=== PATIENT | female | born 1935 | race Caucasian/White ===

== ENCOUNTER 2018-07-29 15:59 | Inpatient (IN) | payer MEDICARE, BC ==
[~2018-07-29] VITALS: Ht 167.6 cm; Wt 74.8 kg
[2018-07-29] MEDS ORDERED: Z GUARD REMEDY PASTE 57 GM TUBE TOP PRN (18:30)
[2018-07-29] MEDS ORDERED: SODI100037 PO (19:15)
[2018-07-29] MEDS ORDERED: HEPA500013 IJ (19:15)
[2018-07-29] MEDS ORDERED: IPRA0.2S48 NEB (19:15)
[2018-07-29] MEDS ORDERED: ALBU1.25 NEB (19:15)
[2018-07-29] MEDS ORDERED: ACET-2154 PO (19:15)
[2018-07-29] MEDS ORDERED: DOXA2TAB2 PO (19:15)
[2018-07-29] MEDS ORDERED: SENN-18 PO (19:15)
[2018-07-29] MEDS ORDERED: METO100T14 PO (19:15)
[2018-07-29] MEDS ORDERED: HYDR-4077 PO (19:15)
[2018-07-29] MEDS ORDERED: LEVO88TA5 PO (19:15)
[2018-07-29] MEDS ORDERED: CLOP75TA33 PO (19:15)
[2018-07-29] MEDS ORDERED: ALLO100T PO (19:16)
[2018-07-29 20:00] VITALS: BP 139/65
[2018-07-29] MEDS ORDERED: HEPARIN SODIUM,PORCINE 5,000 UNITS/ML VIAL SQ ONE (22:15)
[2018-07-29] MEDS ORDERED: ALBUTEROL SULFATE 1.25 MG/3 ML NEBU NEB PRN (22:15)
[2018-07-29] MEDS ORDERED: ACETAMINOPHEN 325 MG TABLET PO PRN (22:15)
[2018-07-29] MEDS ORDERED: DOXAZOSIN 2 MG TABLET PO SCH (22:30)
[2018-07-29] MEDS: ACETAMINOPHEN ES 500 MG TABLET PO PRN (22:31)
--- NOTE | 2018-07-30 00:13 | NUR ---
Admitting 82 y/o F from [facility] with diagnosis of Acute on Chronic HF exacerbation. Arrived at 1745 via ambulance accompanied by daughter and 2 EMT's. Received pt in bed, AAO x 4 watching television. No acute distress noted. Routine admission care done. Oriented to room and unit. MRSA swab done by AM nurse and sent to lab. Dr. Ascencio aware of admission and med recon completed. Informed Dr. Vizcarra of pt admission. Pictures taken and placed in chart. Verbally responsive and able to make needs known. On 1L O2 via NC with saturation at 95%. Denies pain or discomfort at this time. All safety measures and fall precautions maintained. Call light and all personal belongings within reach. Will continue to monitor.
--- NOTE | 2018-07-30 01:56 | NUR ---
Patient verbalizing feeling of anxiety and "heart racing". Vitals WNL, HR noted to be 115. paged. Dr. Barbosa informed with new orders for Xanax 1 mg PO QHSPRN. Order noted and carried out. Safety maintained. Call light within reach. Will continue to monitor.
[2018-07-30] MEDS: ALPRAZOLAM 0.5 MG TABLET PO PRN ×2 (02:23→20:53)
[2018-07-30] MEDS: LEVOTHYROXINE SODIUM 88 MCG TABLET PO SCH (06:32)
[2018-07-30 07:26] LABS: BASOPHILS # (AUTO) 0.1 K/uL (0.0-8.0); BASOPHILS % (AUTO) 0.7 % (0.0-2.0); EOSINOPHILS # (AUTO) 0.2 K/uL (0.0-0.7); EOSINOPHILS % (AUTO) 2.8 % (0.0-7.0); HEMATOCRIT 24.1 % (31.2-41.9); HEMOGLOBIN 8.6 g/dL (10.9-14.3); LYMPHOCYTES # (AUTO) 0.8 K/uL (20.0-40.0); MEAN CORPUSCULAR HEMOGLOBIN 33.2 uug (24.7-32.8); MEAN CORPUSCULAR HGB CONC 36 g/dL (32.3-35.6); MEAN CORPUSCULAR VOLUME 92.9 fL (75.5-95.3); MONOCYTES # (AUTO) 0.5 K/uL (2.0-10.0); MONOCYTES % (AUTO) 7.1 % (0.0-11.0); NEUTROPHILS # (AUTO) 5.8 K/uL (1.8-8.9); NEUTROPHILS % (AUTO) 78.4 % (38.5-71.5); PLATELET COUNT (AUTO) 166 K/uL (179-408); WHITE BLOOD COUNT (AUTO) 7.4 K/uL (3.8-11.8)
[2018-07-30 07:42] LABS: CARBON DIOXIDE 30 mmol/L (21-32); CHLORIDE 96 mmol/L (98-107); CHOLESTEROL 156 mg/dL (<200); CREATININE 1.5 mg/dL (0.6-1.3); GLUCOSE 96 mg/dL (74-106); HDL CHOLESTEROL 63 mg/dL (40-60); MAGNESIUM 2.1 mg/dL (1.8-2.4); PHOSPHOROUS 3.5 mg/dL (2.5-4.9); POTASSIUM 4.4 mmol/L (3.5-5.1); TRIGLYCERIDES 114 MG/DL (30-150); UREA NITROGEN, BLOOD 27 mg/dL (7-18)
[2018-07-30 08:00] VITALS: BP 160/78
[2018-07-30] MEDS: ALLOPURINOL 100 MG TABLET PO SCH (08:29)
[2018-07-30] MEDS: CLOPIDOGREL 75 MG TABLET PO SCH (08:29)
[2018-07-30] MEDS: METOPROLOL TARTRATE 100 MG TABLET PO SCH ×2 (08:29→21:22)
--- NOTE | 2018-07-30 08:45 | NUR ---
Received patient, awake alert x4. Weak in appearance. HR-112. Dr. West aware, said to continue Metoprolol as ordered. Seen and examined by Not in any form of distress, patient said she felt weak. No chest pains noted. On O2 at 2LPM.
--- NOTE | 2018-07-30 09:00 | NUR ---
Patient complained of SOB, not in any form of distress. Informed RT, breathing treatment done.
[2018-07-30] MEDS: LOSARTAN POTASSIUM 50 MG TABLET PO SCH (09:37)
[2018-07-30] MEDS ORDERED: HEPARIN SODIUM,PORCINE 5,000 UNITS/ML VIAL SQ SCH (09:39)
--- NOTE | 2018-07-30 10:00 | NUR ---
Up with physical therapy. Tolerating well.
[2018-07-30] MEDS: SODIUM CHLORIDE 1,000 MG TABLET PO SCH (10:20)
--- NOTE | 2018-07-30 13:52 | NUR ---
WOUND CARE CONSULT: PT PRESENTS WITH RT FOREARM SKIN TEAR, PRESENT ON ADMISSION. PT IS AMBULATORY AND CONTINENT AT THIS TIME. PT REFUSED FULL SKIN ASSESSMENT. ALL SKIN PROTECTION AND WOUND CARE RECOMMENDATIONS DISCUSSED WITH NURSING STAFF. WILL SEE PRN. HARLEY IN AGREEMENT WITH PLAN OF CARE. Addendum: 07/30/18 at 1406 by YINA PONCE RN Amended: Links added.
[2018-07-30 16:00] VITALS: BP 132/70
[2018-07-30 20:01] VITALS: BP 150/71
[2018-07-30] MEDS: DOCUSATE SODIUM 100 MG CAPSULE PO SCH (20:51)
[2018-07-30] MEDS: DOXAZOSIN 2 MG TABLET PO SCH (20:53)
[2018-07-30] MEDS: ACETAMINOPHEN ES 500 MG TABLET PO PRN (20:53)
[2018-07-30] MEDS: SENNOSIDES 1 TABLET PO SCH (20:53)
[2018-07-31 05:24] VITALS: BP 142/69
--- NOTE | 2018-07-31 05:36 | NUR ---
aaox4 on continous O2 @2L via nasal cannula. needs attended. kept comfortable. will monitor patient. no respiratory distress noted.OOB to BSC with moderate assist. voiding well. VSS rt arm dressing intact. denies any pain nor any discomfort.
[2018-07-31] MEDS: LEVOTHYROXINE SODIUM 88 MCG TABLET PO SCH (06:35)
[2018-07-31] MEDS: METOPROLOL TARTRATE 100 MG TABLET PO SCH ×2 (09:45→20:55)
[2018-07-31] MEDS: CLOPIDOGREL 75 MG TABLET PO SCH (09:45)
[2018-07-31] MEDS: ALLOPURINOL 100 MG TABLET PO SCH (09:45)
[2018-07-31] MEDS: SODIUM CHLORIDE 1,000 MG TABLET PO SCH (09:45)
[2018-07-31] MEDS: LOSARTAN POTASSIUM 50 MG TABLET PO SCH (09:45)
[2018-07-31] MEDS: ACETAMINOPHEN ES 500 MG TABLET PO PRN ×2 (09:50→20:57)
[2018-07-31 19:37] VITALS: BP 133/60
[2018-07-31] MEDS: DOCUSATE SODIUM 100 MG CAPSULE PO SCH (20:53)
[2018-07-31] MEDS: SENNOSIDES 1 TABLET PO SCH (20:53)
[2018-07-31] MEDS: DOXAZOSIN 2 MG TABLET PO SCH (20:54)
--- NOTE | 2018-08-01 05:01 | NUR ---
quiet night. aaox4 no acute distress noted. OOB to bedside commode. voiding well. needs attended. tolerated po meds well. will monitor patient. siderails up for safety. VSS. tolerated po med well. In good spirits.
[2018-08-01 05:18] VITALS: BP 109/54
[2018-08-01] MEDS: LEVOTHYROXINE SODIUM 88 MCG TABLET PO SCH (06:32)
[2018-08-01 07:28] LABS: BASOPHILS # (AUTO) 0.1 K/uL (0.0-8.0); BASOPHILS % (AUTO) 0.7 % (0.0-2.0); EOSINOPHILS # (AUTO) 0.3 K/uL (0.0-0.7); EOSINOPHILS % (AUTO) 4.4 % (0.0-7.0); HEMATOCRIT 26.6 % (31.2-41.9); HEMOGLOBIN 9.4 g/dL (10.9-14.3); LYMPHOCYTES # (AUTO) 1.1 K/uL (20.0-40.0); LYMPHOCYTES % (AUTO) 14.6 % (20.5-51.5); MEAN CORPUSCULAR HEMOGLOBIN 33.2 uug (24.7-32.8); MEAN CORPUSCULAR HGB CONC 35 g/dL (32.3-35.6); MEAN CORPUSCULAR VOLUME 93.8 fL (75.5-95.3); MONOCYTES # (AUTO) 0.5 K/uL (2.0-10.0); MONOCYTES % (AUTO) 7.2 % (0.0-11.0); NEUTROPHILS # (AUTO) 5.3 K/uL (1.8-8.9); NEUTROPHILS % (AUTO) 73.1 % (38.5-71.5); PLATELET COUNT (AUTO) 194 K/uL (179-408); RED BLOOD CELL COUNT(AUTO) 2.83 MIL/uL (3.63-4.92); WHITE BLOOD COUNT (AUTO) 7.2 K/uL (3.8-11.8)
[2018-08-01 07:38] LABS: ALANINE AMINOTRANSFERASE 21 U/L (14-59); ALKALINE PHOSPHATASE 73 U/L (50-136); ASPARTATE AMINOTRANSFERASE 26 U/L (15-37); BILIRUBIN,TOTAL 0.3 mg/dL (0.2-1.0); CARBON DIOXIDE 31 mmol/L (21-32); CHLORIDE 94 mmol/L (98-107); CREATININE 1.8 mg/dL (0.6-1.3); GLUCOSE 94 mg/dL (74-106); MAGNESIUM 2.2 mg/dL (1.8-2.4); PHOSPHOROUS 4.4 mg/dL (2.5-4.9); POTASSIUM 4.1 mmol/L (3.5-5.1); TOTAL PROTEIN, SERUM 6.1 g/dL (6.4-8.2); UREA NITROGEN, BLOOD 32 mg/dL (7-18)
[2018-08-01] MEDS: CLOPIDOGREL 75 MG TABLET PO SCH (08:42)
[2018-08-01] MEDS: METOPROLOL TARTRATE 100 MG TABLET PO SCH ×2 (08:42→21:17)
[2018-08-01] MEDS: ALLOPURINOL 100 MG TABLET PO SCH (08:42)
[2018-08-01] MEDS: SODIUM CHLORIDE 1,000 MG TABLET PO SCH ×2 (13:09→17:53)
[2018-08-01 19:30] VITALS: BP 141/70
[2018-08-01] MEDS: SENNOSIDES 1 TABLET PO SCH (21:00)
[2018-08-01] MEDS: DOCUSATE SODIUM 100 MG CAPSULE PO SCH (21:00)
[2018-08-01] MEDS: ACETAMINOPHEN ES 500 MG TABLET PO PRN (21:14)
[2018-08-01] MEDS: DOXAZOSIN 2 MG TABLET PO SCH (21:14)
[2018-08-01] MEDS: ALPRAZOLAM 0.5 MG TABLET PO PRN (22:41)
--- NOTE | 2018-08-01 23:40 | NUR ---
INTERDISCIPLINARY TEAM CONFERENCE
[2018-08-02 04:00] VITALS: BP 133/69
[2018-08-02] MEDS: LEVOTHYROXINE SODIUM 88 MCG TABLET PO SCH (06:44)
[2018-08-02 07:14] LABS: CARBON DIOXIDE 29 mmol/L (21-32); CHLORIDE 97 mmol/L (98-107); CREATININE 1.6 mg/dL (0.6-1.3); GLUCOSE 86 mg/dL (74-106); MAGNESIUM 2.1 mg/dL (1.8-2.4); PHOSPHOROUS 4.3 mg/dL (2.5-4.9); POTASSIUM 4.6 mmol/L (3.5-5.1); UREA NITROGEN, BLOOD 33 mg/dL (7-18)
[2018-08-02 07:30] LABS: URIC ACID 5.2 mg/dL (2.6-6.0)
--- NOTE | 2018-08-02 09:00 | NUR ---
Patient noted resting in bed, no complaints of pain at this time, no signs of distress, MD Potts orders discontinuance of fluid restriction, normal saline running at 60 mL/hr, urine specimen sent to lab, call light in reach, bed locked and in lowest position, all needs met
[2018-08-02] MEDS: CLOPIDOGREL 75 MG TABLET PO SCH (09:38)
[2018-08-02] MEDS: ALLOPURINOL 100 MG TABLET PO SCH (09:38)
[2018-08-02] MEDS: METOPROLOL TARTRATE 100 MG TABLET PO SCH ×2 (09:39→20:38)
[2018-08-02] MEDS: SODIUM CHLORIDE 1,000 MG TABLET PO SCH ×3 (09:39→17:14)
[2018-08-02] MEDS: ACETAMINOPHEN ES 500 MG TABLET PO PRN ×2 (12:09→20:39)
[2018-08-02] MEDS: IV NS 1000 ML 1,000 ML IV PRN (12:10)
[2018-08-02 16:30] VITALS: BP 97/44
--- NOTE | 2018-08-02 19:45 | NUR ---
Received pt in bed, AAO x 4 reading a book. No acute distress noted. Verbally responsive and able to make needs known. Denies pain or discomfort at this time. Noted with IVF running on L hand, tolerating well. No s/s infiltration noted. All safety measures and fall precautions maintained. Call light and all personal belongings within reach. Will continue to monitor.
[2018-08-02 19:47] VITALS: BP 147/66
[2018-08-02] MEDS: DOCUSATE SODIUM 100 MG CAPSULE PO SCH (20:38)
[2018-08-02] MEDS: SENNOSIDES 1 TABLET PO SCH (20:39)
[2018-08-02] MEDS: DOXAZOSIN 2 MG TABLET PO SCH (20:39)
[2018-08-02] MEDS: ALPRAZOLAM 0.5 MG TABLET PO PRN (23:07)
[2018-08-03 05:00] VITALS: BP 135/56
[2018-08-03] MEDS: IV NS 1000 ML 1,000 ML IV PRN (06:22)
[2018-08-03] MEDS: LEVOTHYROXINE SODIUM 88 MCG TABLET PO SCH (06:31)
--- NOTE | 2018-08-03 07:43 | NUR ---
Patient noted resting in bed, no complaints of pain at this time, no signs of distress, normal saline running at 60 mL/hr, x [address], call light in reach, bed locked and in lowest position, all needs met
[2018-08-03 08:00] VITALS: BP 122/50
[2018-08-03] MEDS: ALLOPURINOL 100 MG TABLET PO SCH (08:30)
[2018-08-03] MEDS: ACETAMINOPHEN ES 500 MG TABLET PO PRN ×2 (08:30→20:47)
[2018-08-03] MEDS: CLOPIDOGREL 75 MG TABLET PO SCH (08:30)
[2018-08-03] MEDS: SODIUM CHLORIDE 1,000 MG TABLET PO SCH ×3 (08:31→16:01)
[2018-08-03] MEDS: METOPROLOL TARTRATE 100 MG TABLET PO SCH ×2 (08:31→20:46)
[2018-08-03 15:50] VITALS: BP 146/62
[2018-08-03] MEDS: SENNOSIDES 1 TABLET PO SCH (20:44)
[2018-08-03] MEDS: DOCUSATE SODIUM 100 MG CAPSULE PO SCH (20:44)
[2018-08-03] MEDS: DOXAZOSIN 2 MG TABLET PO SCH (20:45)
[2018-08-03] MEDS: ALPRAZOLAM 0.5 MG TABLET PO PRN (20:47)
[2018-08-03 21:55] VITALS: BP 177/72
[2018-08-04 04:00] VITALS: BP 136/54
[2018-08-04] MEDS: LEVOTHYROXINE SODIUM 88 MCG TABLET PO SCH (06:34)
--- NOTE | 2018-08-04 06:42 | NUR ---
slept most of the shift. aao x4 ambulates with walker. voiding well. needs attended. IVF's infusing well. denies any pain nor any discomfort. kept comfortable.fall precautions maintained.side rails up for safety.
--- NOTE | 2018-08-04 07:44 | NUR ---
Patient noted sitting up in bed, no complaints of pain at this time, no signs of distress, normal saline running at 60 mL/hr, x [address], call light in reach, bed locked and in lowest position, all needs met at this time
[2018-08-04] MEDS: METOPROLOL TARTRATE 100 MG TABLET PO SCH ×2 (09:00→20:14)
[2018-08-04] MEDS: CLOPIDOGREL 75 MG TABLET PO SCH (09:01)
[2018-08-04] MEDS: ALLOPURINOL 100 MG TABLET PO SCH (09:01)
[2018-08-04] MEDS: ACETAMINOPHEN ES 500 MG TABLET PO PRN (09:01)
[2018-08-04] MEDS: SODIUM CHLORIDE 1,000 MG TABLET PO SCH ×3 (09:01→17:45)
[2018-08-04 16:01] VITALS: BP 164/69
[2018-08-04] MEDS ORDERED: hydrALAZINE HCL 25 MG TABLET PO PRN (17:30)
[2018-08-04 20:00] VITALS: BP 122/84
[2018-08-04] MEDS: ALPRAZOLAM 0.5 MG TABLET PO PRN (20:10)
[2018-08-04] MEDS: DOXAZOSIN 2 MG TABLET PO SCH (20:11)
[2018-08-04] MEDS: DOCUSATE SODIUM 100 MG CAPSULE PO SCH (20:12)
[2018-08-04] MEDS: SENNOSIDES 1 TABLET PO SCH (20:13)
[2018-08-04 22:05] VITALS: BP 157/68
[2018-08-04] MEDS: AMLODIPINE 5 MG TABLET PO SCH (22:05)
[2018-08-05 04:00] VITALS: BP 140/64
[2018-08-05] MEDS: ACETAMINOPHEN ES 500 MG TABLET PO PRN (05:26)
--- NOTE | 2018-08-05 05:54 | NUR ---
Received pt in bed feeling anxiety. AAO x3. HR elevated. Xanax and other routine meds given as ordered. On 2L O2 via NC, tolerating well. No acute distress noted. All needs attended to promptly t/o the night. Safety measures maintained. Call light and personal belongings within reach. Will continue to monitor.
[2018-08-05] MEDS: LEVOTHYROXINE SODIUM 88 MCG TABLET PO SCH (06:32)
--- NOTE | 2018-08-05 07:20 | NUR ---
PATIENT ON BED AWAKE AAOX4. ON O2 @ 2LPM VIA NC. NO ACUTE DISTRESS NOTED BLE EDEMA NOTED. COMPLAINS OF SOB W/ ACTIVITY. COMFORT MEASURES PROVIDED. WILL CONTINUE TO MONITOR CLOSELY.
[2018-08-05 07:55] LABS: CARBON DIOXIDE 29 mmol/L (21-32); CHLORIDE 99 mmol/L (98-107); CREATININE 1.3 mg/dL (0.6-1.3); GLUCOSE 114 mg/dL (74-106); UREA NITROGEN, BLOOD 22 mg/dL (7-18)
[2018-08-05 08:30] LABS: BASOPHILS # (AUTO) 0.1 K/uL (0.0-8.0); BASOPHILS % (AUTO) 0.8 % (0.0-2.0); EOSINOPHILS # (AUTO) 0.1 K/uL (0.0-0.7); EOSINOPHILS % (AUTO) 1.4 % (0.0-7.0); HEMOGLOBIN 8.9 g/dL (10.9-14.3); LYMPHOCYTES # (AUTO) 0.8 K/uL (20.0-40.0); LYMPHOCYTES % (AUTO) 13.3 % (20.5-51.5); MEAN CORPUSCULAR HEMOGLOBIN 33.7 uug (24.7-32.8); MEAN CORPUSCULAR HGB CONC 36 g/dL (32.3-35.6); MEAN CORPUSCULAR VOLUME 95.1 fL (75.5-95.3); MONOCYTES # (AUTO) 0.4 K/uL (2.0-10.0); MONOCYTES % (AUTO) 6.7 % (0.0-11.0); NEUTROPHILS # (AUTO) 4.7 K/uL (1.8-8.9); NEUTROPHILS % (AUTO) 77.8 % (38.5-71.5); RED BLOOD CELL COUNT(AUTO) 2.63 MIL/uL (3.63-4.92); WHITE BLOOD COUNT (AUTO) 6.1 K/uL (3.8-11.8)
[2018-08-05 08:34] LABS: PLATELET COUNT (AUTO) 261 K/uL (179-408)
[2018-08-05] MEDS: SODIUM CHLORIDE 1,000 MG TABLET PO SCH ×3 (09:46→16:20)
[2018-08-05] MEDS: CLOPIDOGREL 75 MG TABLET PO SCH (09:46)
[2018-08-05] MEDS: ALLOPURINOL 100 MG TABLET PO SCH (09:46)
[2018-08-05] MEDS: METOPROLOL TARTRATE 100 MG TABLET PO SCH ×2 (10:23→21:00)
[2018-08-05] MEDS: AMLODIPINE 5 MG TABLET PO SCH ×2 (10:24→21:00)
--- NOTE | 2018-08-05 12:12 | NUR ---
PATIENT REQUESTED IF SHE CAN GET AN ORDER FOR LASIX, COMPLAINING OF SOB AND SWELLING BLE. PER PATIENT SHE TAKES LASIX 20 MG BID AT HOME. NOTIFIED DR. KENNY, WITH ORDERS FOR LASIX 60MG NOW AND RESUME LASIX 20 MG BID. ORDERS NOTED AND CARRIED OUT.
[2018-08-05] MEDS ORDERED: FUROSEMIDE 20 MG TABLET PO ONE (12:15)
[2018-08-05 16:53] VITALS: BP 153/72
[2018-08-05 20:00] VITALS: BP 167/68
[2018-08-05] MEDS: DOCUSATE SODIUM 100 MG CAPSULE PO SCH (20:59)
[2018-08-05] MEDS: SENNOSIDES 1 TABLET PO SCH (20:59)
[2018-08-05] MEDS: DOXAZOSIN 2 MG TABLET PO SCH (21:00)
--- NOTE | 2018-08-05 21:58 | NUR ---
Received pt resting in bed and watching TV. On 2L O2 via NC, tolerating well. No acute distress noted. No c/o pain or discomfort. Safety measures maintained. Call light and personal belongings within reach. Will continue to monitor.
[2018-08-05 22:30] VITALS: BP 133/61
[2018-08-05] MEDS: ALPRAZOLAM 0.5 MG TABLET PO PRN (23:20)
[2018-08-06 04:00] VITALS: BP 154/68
[2018-08-06] MEDS: LEVOTHYROXINE SODIUM 88 MCG TABLET PO SCH (06:47)
[2018-08-06 07:45] VITALS: BP 169/81
[2018-08-06] MEDS: CLOPIDOGREL 75 MG TABLET PO SCH (08:14)
[2018-08-06] MEDS: ALLOPURINOL 100 MG TABLET PO SCH (08:14)
[2018-08-06] MEDS: FLUTICASONE/VILANTEROL 1 EACH BLST.W.DEV INH SCH (08:14)
[2018-08-06] MEDS: AMLODIPINE 5 MG TABLET PO SCH ×2 (08:18→20:50)
[2018-08-06] MEDS: FUROSEMIDE 20 MG TABLET PO SCH (08:18)
[2018-08-06] MEDS: SODIUM CHLORIDE 1,000 MG TABLET PO SCH ×2 (08:19→16:28)
[2018-08-06] MEDS: METOPROLOL TARTRATE 100 MG TABLET PO SCH ×2 (08:19→20:50)
[2018-08-06] MEDS ORDERED: FUROSEMIDE 20 MG TABLET PO SCH (09:00)
--- NOTE | 2018-08-06 10:02 | NUR ---
Received pt. in bed with eyes open. A/OX3-4 and able to make her needs known. Denies SOB or CP at this time. On O2 via NC with SAT 94% and tolerating well. Noted with RT. forearms skin tear, wound tx as ordered. BLE edema non-pitting noted, currently on Lasix. No s/sx on bleeding, on plavix. All due AM medications administered as ordered and tolerated well. Safety measures in place. Call light and all frequently used items in reach. Will continue to monitor accordingly.
[2018-08-06 16:03] VITALS: BP 149/65
[2018-08-06] MEDS: ACETAMINOPHEN ES 500 MG TABLET PO PRN (18:13)
--- NOTE | 2018-08-06 18:57 | NUR ---
EOS Note: No significant change during this shift. No changes in mentation, A/OX4 able to make her needs known. Denies CP or SOB, currently on 2LPM via NC and tolerating well. D/C'd PIV on Lt. wrist 2/2 non-usage and per pt. request. TX provided on RFA as ordered, secured with kerlix, pt. tolerated tx. Elevated BLE 2/2 edema, non-pitting and resolving with Lasix. No s/sx of bleeding noted. All pt. needs attended and met. Safety measures in place. Call light and all frequently used items within pt. reach. Will endorse to oncoming shift accordingly.
--- NOTE | 2018-08-06 19:30 | NUR ---
RECEIVED PT IN BED. IN NO ACUTE SIGNS OF DISTRESS AT THIS TIME. SAFETY MEASURES RENDERED.
[2018-08-06] MEDS: DOCUSATE SODIUM 100 MG CAPSULE PO SCH (20:49)
[2018-08-06] MEDS: SENNOSIDES 1 TABLET PO SCH (20:49)
[2018-08-06] MEDS: DOXAZOSIN 2 MG TABLET PO SCH (20:51)
[2018-08-06 21:16] VITALS: BP 132/64
[2018-08-06] MEDS: ALPRAZOLAM 0.5 MG TABLET PO PRN (23:18)
[2018-08-07] MEDS: LEVOTHYROXINE SODIUM 88 MCG TABLET PO SCH (06:37)
--- NOTE | 2018-08-07 07:00 | NUR ---
NO SIGNIFICANT CHANGE DURING SHIFT
[2018-08-07 07:28] VITALS: BP 124/70
[2018-08-07 08:00] VITALS: BP 125/55
[2018-08-07] MEDS: ALLOPURINOL 100 MG TABLET PO SCH (08:37)
[2018-08-07] MEDS: CLOPIDOGREL 75 MG TABLET PO SCH (08:37)
[2018-08-07] MEDS: ACETAMINOPHEN ES 500 MG TABLET PO PRN (08:37)
[2018-08-07] MEDS: FUROSEMIDE 20 MG TABLET PO SCH (08:37)
[2018-08-07] MEDS: METOPROLOL TARTRATE 100 MG TABLET PO SCH ×2 (08:39→20:52)
[2018-08-07] MEDS: AMLODIPINE 5 MG TABLET PO SCH ×2 (08:39→20:50)
[2018-08-07] MEDS: SODIUM CHLORIDE 1,000 MG TABLET PO SCH ×2 (08:39→17:19)
[2018-08-07] MEDS: FLUTICASONE/VILANTEROL 1 EACH BLST.W.DEV INH SCH (08:40)
--- NOTE | 2018-08-07 10:46 | NUR ---
Patient noted sitting up in bed, no complaints of pain at this time, no signs of distress, call light in reach, bed locked and in lowest position, x 2 bed rails, all needs met at this time
[2018-08-07 16:00] VITALS: BP 119/51
[2018-08-07 20:00] VITALS: BP 153/78
--- NOTE | 2018-08-07 20:05 | NUR ---
Patient received in bed, AAO X3. Able to make needs known. No sign of acute distress or SOB noted. On O2 2 L/min via N/C. No complain of pain. V/S checked, brief assessment done. Safety measures maintained. Bed brake and alarm on, side rails upx2. Call light and personal belonging within reach. Continue to monitor.
[2018-08-07] MEDS: SENNOSIDES 1 TABLET PO SCH (20:48)
[2018-08-07] MEDS: DOCUSATE SODIUM 100 MG CAPSULE PO SCH (20:48)
[2018-08-07] MEDS: DOXAZOSIN 2 MG TABLET PO SCH (20:51)
[2018-08-07] MEDS: ALPRAZOLAM 0.5 MG TABLET PO PRN (23:03)
[2018-08-08 04:00] VITALS: BP 132/58
--- NOTE | 2018-08-08 05:58 | NUR ---
End of the shift note Patient was stable throughout the shift. No sign of acute distress or SOB noted. On O2 2 L/min via N/C. No complain of pain. Medication given as ordered. Safety measures maintained. Bed brake and alarm on, side rails upx2. Call light and personal belonging within reach. Continue to monitor and will endorse to the day shift nurse.
[2018-08-08] MEDS: LEVOTHYROXINE SODIUM 88 MCG TABLET PO SCH (06:30)
[2018-08-08 08:00] VITALS: BP 139/69
[2018-08-08] MEDS: CLOPIDOGREL 75 MG TABLET PO SCH (08:11)
[2018-08-08] MEDS: ALLOPURINOL 100 MG TABLET PO SCH (08:11)
[2018-08-08] MEDS: SODIUM CHLORIDE 1,000 MG TABLET PO SCH ×2 (08:12→16:55)
[2018-08-08] MEDS: FLUTICASONE/VILANTEROL 1 EACH BLST.W.DEV INH SCH (08:12)
[2018-08-08] MEDS: FUROSEMIDE 20 MG TABLET PO SCH (08:12)
[2018-08-08] MEDS: AMLODIPINE 5 MG TABLET PO SCH ×2 (08:13→20:18)
[2018-08-08] MEDS: METOPROLOL TARTRATE 100 MG TABLET PO SCH ×2 (08:14→20:17)
[2018-08-08] MEDS: MAG HYDROX/AL HYDROX/SIMETH 30 ML LIQUID UDC PO PRN ×3 (09:04→21:05)
--- NOTE | 2018-08-08 09:42 | NUR ---
Received pt. in bed with eyes open. A/OX4 and able to make her needs known. Denies SOB or CP at this time. On O2 via NC with SAT 93% and tolerating well. Pt. c/o dyspepsia, pt. refused PRN tums, notified Dr. Vizcarra promptly and received order for Mylanta, orders noted and carried out .Noted with RT. forearms skin tear, wound tx provided and tolerated well. BLE edema non-pitting subsiding, currently on Lasix. No s/sx on bleeding, on plavix. All due AM medications administered as ordered and PRN Mylanta, pt. tolerated well. Safety measures in place. Call light and all frequently used items in reach. Will continue to monitor accordingly.
[2018-08-08] MEDS: CALCIUM CARBONATE 500 MG TAB.CHEW PO PRN (13:38)
--- NOTE | 2018-08-08 13:40 | NUR ---
INTERDISCIPLINARY TEAM CONFERENCE
[2018-08-08 16:40] VITALS: BP 143/65
--- NOTE | 2018-08-08 18:52 | NUR ---
EOS Note: No significant change during this shift. Pt. A/OX4 able to make her needs known. Denies CP or SOB, currently on 2LPM via NC and tolerating well. Pt. dyspepsia well managed with Tums and Mylanta. Encouraged pt. use of IS for deep breathing exercise, pt. teaching provided for use of IS, returned demo by pt. Wound care provided on RFA as ordered, secured with kerlix, pt. tolerated tx. All due medications administered as ordered. Elevated BLE 2/2 edema, non-pitting with improvement. No s/sx of bleeding noted. All pt. needs attended and met. Safety measures in place. Call light and all frequently used items within pt. reach. Will endorse to oncoming shift accordingly.
[2018-08-08 19:30] VITALS: BP 138/65
[2018-08-08] MEDS: SENNOSIDES 1 TABLET PO SCH (20:17)
[2018-08-08] MEDS: DOCUSATE SODIUM 100 MG CAPSULE PO SCH (20:17)
[2018-08-08] MEDS: DOXAZOSIN 2 MG TABLET PO SCH (20:20)
--- NOTE | 2018-08-08 20:20 | NUR ---
Patient received in bed, AAO X4. Able to make needs known. No sign of acute distress or SOB noted. On O2 1.5 L/min via N/C. No complain of pain. V/S checked, brief assessment done. Safety measures maintained. Bed brake and alarm on, side rails upx2. Call light and personal belonging within reach. Continue to monitor.
[2018-08-08] MEDS: ALPRAZOLAM 0.5 MG TABLET PO PRN (23:06)
[2018-08-09 04:00] VITALS: BP 131/64
--- NOTE | 2018-08-09 05:25 | NUR ---
End of the shift note Patient was stable throughout the shift. No sign of acute distress or SOB noted. On O2 2 L/min via N/C. No complain of pain. Medication given as ordered. Safety measures maintained. All needs attended promptly. Bed brake and alarm on, side rails upx2. Call light and personal belonging within reach. Continue to monitor and will endorse to the day shift nurse.
[2018-08-09] MEDS: LEVOTHYROXINE SODIUM 88 MCG TABLET PO SCH (06:33)
[2018-08-09] MEDS: FUROSEMIDE 20 MG TABLET PO SCH (09:57)
[2018-08-09] MEDS: CLOPIDOGREL 75 MG TABLET PO SCH (09:57)
[2018-08-09] MEDS: ALLOPURINOL 100 MG TABLET PO SCH (09:57)
[2018-08-09] MEDS: AMLODIPINE 5 MG TABLET PO SCH ×2 (09:57→20:38)
[2018-08-09] MEDS: METOPROLOL TARTRATE 100 MG TABLET PO SCH ×2 (09:58→20:39)
[2018-08-09] MEDS: SODIUM CHLORIDE 1,000 MG TABLET PO SCH ×2 (09:58→16:19)
[2018-08-09] MEDS: FLUTICASONE/VILANTEROL 1 EACH BLST.W.DEV INH SCH (09:58)
[2018-08-09] MEDS: MAG HYDROX/AL HYDROX/SIMETH 30 ML LIQUID UDC PO PRN ×3 (13:03→20:39)
[2018-08-09 15:35] VITALS: BP 160/65
--- NOTE | 2018-08-09 20:15 | NUR ---
Patient received at bed. AAO X3. No sign of acute distress or SOB noted. On room air. Safety measures maintained, Fall precaution maintained, bed in low position, side rails up x2, bed brake on, call light and personal belonging within reach. Continue to monitor.
[2018-08-09] MEDS: SENNOSIDES 1 TABLET PO SCH (20:37)
[2018-08-09] MEDS: DOCUSATE SODIUM 100 MG CAPSULE PO SCH (20:39)
[2018-08-09] MEDS: DOXAZOSIN 2 MG TABLET PO SCH (20:41)
[2018-08-09 20:55] VITALS: BP 163/72
[2018-08-09] MEDS: ALPRAZOLAM 0.5 MG TABLET PO PRN (23:00)
--- NOTE | 2018-08-10 05:42 | NUR ---
End of the shift note Patient was stable throughout the shift. No sign of acute distress or SOB noted. On O2 1.5 L/min via N/C. No complain of pain. Medication given as ordered. Safety measures maintained. All needs attended promptly. Bed brake and alarm on, side rails upx2. Call light and personal belonging within reach. Continue to monitor and will endorse to the day shift nurse.
[2018-08-10] MEDS: LEVOTHYROXINE SODIUM 88 MCG TABLET PO SCH (06:36)
[2018-08-10 06:44] VITALS: BP 117/54
[2018-08-10 08:00] VITALS: BP 137/61
[2018-08-10] MEDS: ACETAMINOPHEN ES 500 MG TABLET PO PRN (08:18)
[2018-08-10] MEDS: CLOPIDOGREL 75 MG TABLET PO SCH (08:18)
[2018-08-10] MEDS: AMLODIPINE 5 MG TABLET PO SCH ×2 (08:18→20:33)
[2018-08-10] MEDS: ALLOPURINOL 100 MG TABLET PO SCH (08:18)
[2018-08-10] MEDS: FUROSEMIDE 20 MG TABLET PO SCH (08:18)
[2018-08-10] MEDS: METOPROLOL TARTRATE 100 MG TABLET PO SCH ×2 (08:19→20:27)
[2018-08-10] MEDS: SODIUM CHLORIDE 1,000 MG TABLET PO SCH ×2 (08:19→16:50)
[2018-08-10] MEDS: FLUTICASONE/VILANTEROL 1 EACH BLST.W.DEV INH SCH (08:19)
--- NOTE | 2018-08-10 09:17 | NUR ---
Patient noted sitting up in wheelchair, PRN Tylenol given on request, no signs of distress noted, on 2 Liters of oxygen, call light in reach, all needs met at this time.
[2018-08-10] MEDS: MAG HYDROX/AL HYDROX/SIMETH 30 ML LIQUID UDC PO PRN ×3 (09:47→22:27)
[2018-08-10] MEDS: CALCIUM CARBONATE 500 MG TAB.CHEW PO PRN (16:07)
[2018-08-10 16:23] VITALS: BP 148/65
--- NOTE | 2018-08-10 17:57 | NUR ---
PRN Maalox and Tums given this shift for stomach upset, no distress noted this shift, continues on 2 Liters of oxygen
[2018-08-10 19:10] VITALS: BP 143/66
--- NOTE | 2018-08-10 19:20 | NUR ---
Received patient lying in bed. AAOX 4. In no acute distress. VS WNL. On o2 at 2LPM via NC in place. O2 sat at 96%. Stated mild upset stomach but tolerable at this time. Will continue to monitor. Needs assessed and attended to. Safety measure initiated and call bernard within reach.
[2018-08-10] MEDS: DOCUSATE SODIUM 100 MG CAPSULE PO SCH (20:26)
[2018-08-10] MEDS: DOXAZOSIN 2 MG TABLET PO SCH (20:26)
[2018-08-10] MEDS: SENNOSIDES 1 TABLET PO SCH (20:26)
[2018-08-11] MEDS: ALPRAZOLAM 0.5 MG TABLET PO PRN ×2 (00:07→22:52)
[2018-08-11 02:30] VITALS: BP 145/64
--- NOTE | 2018-08-11 06:20 | NUR ---
AAOX4. In no acute distress. VS WNL. O2 at 2LPM via NC in place. O2 sat at 96%. Needs assessed and attended to. Safety measure maintained and call bernard within reach.
[2018-08-11] MEDS: LEVOTHYROXINE SODIUM 88 MCG TABLET PO SCH (06:35)
--- NOTE | 2018-08-11 07:44 | NUR ---
Patient noted sitting up in bed, no complaints of pain at this time, no signs of distress, call light in reach, bed locked and in lowest position, all needs known at this time
[2018-08-11] MEDS: FLUTICASONE/VILANTEROL 1 EACH BLST.W.DEV INH SCH (08:31)
[2018-08-11] MEDS: FUROSEMIDE 20 MG TABLET PO SCH (08:31)
[2018-08-11] MEDS: CLOPIDOGREL 75 MG TABLET PO SCH (08:31)
[2018-08-11] MEDS: ACETAMINOPHEN ES 500 MG TABLET PO PRN (08:31)
[2018-08-11] MEDS: ALLOPURINOL 100 MG TABLET PO SCH (08:31)
[2018-08-11] MEDS: SODIUM CHLORIDE 1,000 MG TABLET PO SCH ×2 (08:32→17:33)
[2018-08-11] MEDS: METOPROLOL TARTRATE 100 MG TABLET PO SCH ×2 (08:33→21:27)
[2018-08-11] MEDS: MAG HYDROX/AL HYDROX/SIMETH 30 ML LIQUID UDC PO PRN ×3 (08:34→22:52)
[2018-08-11] MEDS: AMLODIPINE 5 MG TABLET PO SCH ×2 (08:34→21:27)
[2018-08-11 16:05] VITALS: BP 139/64
[2018-08-11] MEDS: DOCUSATE SODIUM 100 MG CAPSULE PO SCH (21:26)
[2018-08-11] MEDS: SENNOSIDES 1 TABLET PO SCH (21:27)
[2018-08-11] MEDS: DOXAZOSIN 2 MG TABLET PO SCH (21:28)
[2018-08-12 05:44] VITALS: BP 136/66
[2018-08-12] MEDS: CALCIUM CARBONATE 500 MG TAB.CHEW PO PRN (05:47)
[2018-08-12] MEDS: LEVOTHYROXINE SODIUM 88 MCG TABLET PO SCH (06:33)
[2018-08-12] MEDS: MAG HYDROX/AL HYDROX/SIMETH 30 ML LIQUID UDC PO PRN ×2 (06:41→13:05)
--- NOTE | 2018-08-12 08:30 | NUR ---
Patient sitting up on the chair, eating breakfast, alert, not in any form of distress. No complain of any discomfort. Patient informed of planned discharge and she is agreeable. On oxygen at 1LPM/nasal cannula. Assisted with her needs. Call light placed within reach.
[2018-08-12] MEDS: FLUTICASONE/VILANTEROL 1 EACH BLST.W.DEV INH SCH (09:50)
[2018-08-12] MEDS: CLOPIDOGREL 75 MG TABLET PO SCH (09:51)
[2018-08-12] MEDS: FUROSEMIDE 20 MG TABLET PO SCH (09:51)
[2018-08-12] MEDS: AMLODIPINE 5 MG TABLET PO SCH (09:52)
[2018-08-12] MEDS: METOPROLOL TARTRATE 100 MG TABLET PO SCH (09:52)
[2018-08-12] MEDS: SODIUM CHLORIDE 1,000 MG TABLET PO SCH ×2 (09:54→17:25)
[2018-08-12] MEDS: ALLOPURINOL 100 MG TABLET PO SCH (10:00)
--- NOTE | 2018-08-12 13:47 | NUR ---
Received an order from Dr. Vizcarra for discharge to home with home health.
[2018-08-12 16:02] VITALS: BP 145/62
--- NOTE | 2018-08-12 17:00 | NUR ---
Discharge instructions provided to patient and son with verbalized understanding. All belongings well accounted for and brought home by son. Offered flu vaccine and pneumonia vaccines and per patient she prefers to get it with her primary MD.
--- NOTE | 2018-08-12 19:31 | NUR ---
Patient picked up by [facility] at this time. Patient remains alert, verbally responsive, not in any form of acute distress. She denies any pain or discomfort at this time.
== END 2018-08-12 19:30 | disposition home health service (06) | DRG 280 ==
PROVIDERS: ADMIT Physical Medicine & Rehabilitation Pain Medicine; ATTEND Physical Medicine & Rehabilitation Pain Medicine
DX: I13.0 Hypertensive heart and chronic kidney disease with heart failure and stage 1 through stage 4 chronic kidney disease, or unspecified chronic kidney disease (principal); I50.33 Acute on chronic diastolic (congestive) heart failure; I21.A1 Myocardial infarction type 2; D68.59 Other primary thrombophilia; E87.1 Hypo-osmolality and hyponatremia; M19.90 Unspecified osteoarthritis, unspecified site; E03.9 Hypothyroidism, unspecified; I25.10 Atherosclerotic heart disease of native coronary artery without angina pectoris; D50.9 Iron deficiency anemia, unspecified; D63.8 Anemia in other chronic diseases classified elsewhere; F41.9 Anxiety disorder, unspecified; F32.9 Major depressive disorder, single episode, unspecified; I27.20 Pulmonary hypertension, unspecified; I34.0 Nonrheumatic mitral (valve) insufficiency; I42.2 Other hypertrophic cardiomyopathy; I70.0 Atherosclerosis of aorta; N18.2 Chronic kidney disease, stage 2 (mild); N20.0 Calculus of kidney; J43.9 Emphysema, unspecified; M81.0 Age-related osteoporosis without current pathological fracture; Z87.440 Personal history of urinary (tract) infections; Z95.0 Presence of cardiac pacemaker; Z86.73 Personal history of transient ischemic attack (TIA), and cerebral infarction without residual deficits; R19.5 Other fecal abnormalities; Z88.5 Allergy status to narcotic agent; Z88.8 Allergy status to other drugs, medicaments and biological substances; Z91.040 Latex allergy status
CPT/HCPCS: 36415; 71045; 82533; 83735; 84100; 84300; 84550; 85025; 92523; 92526; 92610; 94640; 97110; 97112; 97116; 97165; 97530; 97535; A4663; A9150; J1644; J7030; J8499

== ENCOUNTER 2021-03-30 21:21 | Inpatient (IN) | payer MEDICARE, BC ==
[~2021-03-30] VITALS: Ht 165.1 cm; Wt 60.8 kg
--- NOTE | 2021-03-30 20:55 | NUR ---
Patient arrived in the unit via [facility], acccompanied by 2 EMT's. Awake, alert and oiriented x 4.pleasant and cheerful. Oriented to her room and call light use. with return demonstration. Routine admission care done. Plan of care initiated.
[~2021-03-30 21:21] MED LIST: ACET-2154 PO; ALBU1.25 NEB; ALLO100T PO; CLOP75TA33 PO; DOXA2TAB2 PO; HEPA500013 IJ; HYDR-4077 PO; IPRA0.2S48 NEB; LEVO88TA5 PO; METO100T14 PO; SENN-18 PO; SODI100010 PO
[2021-03-30] MEDS ORDERED: Z GUARD REMEDY PASTE 57 GM TUBE TOP PRN (21:45)
[2021-03-30] MEDS ORDERED: DILT240C88 PO (22:20)
[2021-03-30] MEDS ORDERED: ONDA4SYR IJ (22:20)
[2021-03-30] MEDS ORDERED: MAGN400O6 PO (22:20)
[2021-03-30] MEDS ORDERED: ACET-2154 PO (22:20)
[2021-03-30] MEDS ORDERED: MAGN30OR PO (22:20)
[2021-03-30] MEDS ORDERED: ATOR10TA PO (22:20)
[2021-03-30] MEDS ORDERED: PANT40TA49 PO (22:20)
[2021-03-30] MEDS ORDERED: IPRA0.2S48 NEB (22:20)
[2021-03-30] MEDS ORDERED: ASPI81TA31 PO (22:20)
[2021-03-30] MEDS ORDERED: CEFT1FRO2 IV (22:20)
[2021-03-30] MEDS ORDERED: [UNRECOGNIZED DRUG - CODE] PO (22:20)
[2021-03-30] MEDS ORDERED: LACT-246 PO (22:20)
[2021-03-30] MEDS ORDERED: ALPR0.255 PO (22:20)
[2021-03-30] MEDS ORDERED: METH40VI37 IVP (22:20)
[2021-03-30] MEDS ORDERED: DOCU100C36 PO (22:20)
[2021-03-30] MEDS ORDERED: CETI-90 PO (22:20)
[2021-03-31] MEDS ORDERED: MAGNESIUM HYDROXIDE 30 ML LIQUID UDC PO PRN
[2021-03-31] MEDS ORDERED: ALPRAZOLAM 0.25 MG TABLET PO SCH
[2021-03-31] MEDS ORDERED: ACETAMINOPHEN 325 MG TABLET PO SCH
[2021-03-31] MEDS ORDERED: IPRATROPIUM BROMIDE 0.5 MG/2.5 ML NEBU NEB SCH ×2 (01:30→07:35)
[2021-03-31] MEDS: ALBUTEROL SULFATE 1.25 MG/3 ML NEBU NEB SCH ×4 (01:34→19:58)
[2021-03-31 04:40] VITALS: BP 140/72
[2021-03-31] MEDS ORDERED: MAG HYDROX/AL HYDROX/SIMETH 30 ML LIQUID UDC PO PRN (05:30)
--- NOTE | 2021-03-31 06:02 | NUR ---
Shift End Report: VS stable, Slept good. No complaint presented all night. All needs attended and met. No significant event reported all night. Continue current rehab plan of care.
[2021-03-31] MEDS ORDERED: LEVOTHYROXINE SODIUM 88 MCG TABLET PO SCH (07:30)
[2021-03-31] MEDS ORDERED: PANTOPRAZOLE SODIUM 40 MG TABLET.DR PO SCH (07:30)
[2021-03-31 08:00] VITALS: BP 121/76
[2021-03-31] MEDS: hydrALAZINE HCL 50 MG TABLET PO SCH ×3 (08:03→21:56)
[2021-03-31] MEDS: ASPIRIN 81 MG TAB.CHEW PO SCH (08:11)
[2021-03-31] MEDS: SODIUM CHLORIDE 1,000 MG TABLET PO SCH (08:11)
[2021-03-31] MEDS: CEphaleXIN 500 MG CAPSULE PO SCH ×2 (08:11→20:36)
[2021-03-31] MEDS: ALLOPURINOL 100 MG TABLET PO SCH (08:11)
[2021-03-31] MEDS: CLOPIDOGREL 75 MG TABLET PO SCH (08:12)
[2021-03-31] MEDS: ENSURE ENLIVE (VAN) 240 ML LIQUID PO SCH (08:13)
[2021-03-31] MEDS: METOPROLOL TARTRATE 50 MG TABLET PO SCH ×2 (09:00→16:57)
[2021-03-31] MEDS ORDERED: hydrALAZINE HCL 50 MG TABLET PO SCH (09:00)
[2021-03-31] MEDS ORDERED: CETIRIZINE HCL 10 MG TABLET PO SCH (09:00)
[2021-03-31] MEDS ORDERED: Medication Not On Formulary EA (Lactose-Reduced Food (Ensure Enlive) 237 ML) PO SCH (09:00)
[2021-03-31] MEDS: DILTIAZEM HCL CD 240 MG CAP.SR.24H PO SCH (09:00)
[2021-03-31] MEDS: DOCUSATE SODIUM 100 MG CAPSULE PO SCH ×2 (10:13→16:54)
[2021-03-31] MEDS: ACETAMINOPHEN 325 MG TABLET PO PRN (10:18)
[2021-03-31] MEDS: IPRATROPIUM BROMIDE 0.5 MG/2.5 ML NEBU NEB SCH ×2 (14:09→19:58)
[2021-03-31 14:22] VITALS: BP 100/67
[2021-03-31] MEDS ORDERED: FURO-152 PO (16:56)
[2021-03-31] MEDS: FUROSEMIDE 20 MG TABLET PO SCH (17:13)
--- NOTE | 2021-03-31 18:55 | NUR ---
Patient AOx3. On room air. no signs of acute distress. Compliant with medications and care. Needs met. Participated with Physical and Occupational Therapy. Bed locked and in low position for safety. Call light within reach. Will endorse to incoming shift.
[2021-03-31] MEDS: DOXAZOSIN 2 MG TABLET PO SCH (20:36)
[2021-03-31] MEDS: SENNOSIDES 1 TABLET PO SCH (20:36)
[2021-03-31] MEDS: ATORVASTATIN 10 MG TABLET PO SCH (20:36)
[2021-03-31 20:41] VITALS: BP 109/53
--- NOTE | 2021-03-31 22:41 | NUR ---
Received pt resting in bed. Visitor was at bedside. AAO x4. No acute distress noted. Pt has COPD, 92% on room air. Due meds given as ordered. Held hydralazine due to decreased BP. Safety measures maintained. Call light and personal items within reach. Will continue to monitor.
[2021-04-01] MEDS: ALBUTEROL SULFATE 1.25 MG/3 ML NEBU NEB SCH ×4 (00:30→19:59)
[2021-04-01] MEDS: IPRATROPIUM BROMIDE 0.5 MG/2.5 ML NEBU NEB SCH ×4 (00:30→19:59)
[2021-04-01 05:10] VITALS: BP 141/76
[2021-04-01] MEDS: hydrALAZINE HCL 50 MG TABLET PO SCH ×3 (05:44→21:16)
[2021-04-01] MEDS: LEVOTHYROXINE SODIUM 88 MCG TABLET PO SCH (06:04)
[2021-04-01] MEDS: PANTOPRAZOLE SODIUM 40 MG TABLET.DR PO SCH (06:04)
--- NOTE | 2021-04-01 06:24 | NUR ---
Pt refused ABG at this time. RN notified.
[2021-04-01 07:18] LABS: BASOPHILS % (AUTO) 0.4 % (0.0-2.0); EOSINOPHILS # (AUTO) 0.2 K/uL (0.0-0.7); EOSINOPHILS % (AUTO) 2.6 % (0.0-7.0); HEMATOCRIT 36.1 % (31.2-41.9); HEMOGLOBIN 12.4 g/dL (10.9-14.3); LYMPHOCYTES # (AUTO) 1.1 K/uL (20.0-40.0); LYMPHOCYTES % (AUTO) 11.4 % (20.5-51.5); MEAN CORPUSCULAR HEMOGLOBIN 31.5 uug (24.7-32.8); MEAN CORPUSCULAR HGB CONC 34 g/dL (32.3-35.6); MEAN CORPUSCULAR VOLUME 92.1 fL (75.5-95.3); MONOCYTES # (AUTO) 0.8 K/uL (2.0-10.0); MONOCYTES % (AUTO) 8.8 % (0.0-11.0); NEUTROPHILS # (AUTO) 7.4 K/uL (1.8-8.9); NEUTROPHILS % (AUTO) 76.8 % (38.5-71.5); PLATELET COUNT (AUTO) 209 K/uL (179-408); RED BLOOD CELL COUNT(AUTO) 3.92 MIL/uL (3.63-4.92); WHITE BLOOD COUNT (AUTO) 9.6 K/uL (3.8-11.8)
[2021-04-01 07:29] LABS: ALANINE AMINOTRANSFERASE 14 U/L (14-59); ALKALINE PHOSPHATASE 53 U/L (50-136); ASPARTATE AMINOTRANSFERASE 18 U/L (15-37); BILIRUBIN,TOTAL 0.3 mg/dL (0.2-1.0); CARBON DIOXIDE 33 mmol/L (21-32); CHLORIDE 97 mmol/L (98-107); CREATINE KINASE, TOTAL 23 U/L (26-192); CREATININE 1.5 mg/dL (0.6-1.3); GLUCOSE 114 mg/dL (74-106); MAGNESIUM 2.3 mg/dL (1.8-2.4); PHOSPHOROUS 3.1 mg/dL (2.5-4.9); TOTAL PROTEIN, SERUM 5.9 g/dL (6.4-8.2); UREA NITROGEN, BLOOD 32 mg/dL (7-18)
[2021-04-01 08:00] VITALS: BP 114/58
[2021-04-01] MEDS: ENSURE ENLIVE (VAN) 240 ML LIQUID PO SCH (08:00)
[2021-04-01] MEDS: SODIUM CHLORIDE 1,000 MG TABLET PO SCH (08:53)
[2021-04-01] MEDS: ASPIRIN 81 MG TAB.CHEW PO SCH (08:53)
[2021-04-01] MEDS: DOCUSATE SODIUM 100 MG CAPSULE PO SCH ×2 (08:53→17:10)
[2021-04-01] MEDS: CEphaleXIN 500 MG CAPSULE PO SCH ×2 (08:53→20:14)
[2021-04-01] MEDS: DILTIAZEM HCL CD 240 MG CAP.SR.24H PO SCH (08:54)
[2021-04-01] MEDS: METOPROLOL TARTRATE 50 MG TABLET PO SCH ×2 (08:55→17:10)
[2021-04-01] MEDS: CETIRIZINE HCL 10 MG TABLET PO SCH (08:56)
[2021-04-01] MEDS: ALLOPURINOL 100 MG TABLET PO SCH (08:56)
[2021-04-01] MEDS: CLOPIDOGREL 75 MG TABLET PO SCH (08:56)
[2021-04-01] MEDS: FUROSEMIDE 20 MG TABLET PO SCH (09:00)
[2021-04-01] MEDS: MAGNESIUM HYDROXIDE 30 ML LIQUID UDC PO PRN (09:14)
--- NOTE | 2021-04-01 09:22 | NUR ---
Received patient alert and oriented x 4, pleasant and cooperative upon assessment. All due meds give per MD order. Notified Tennille López LINUX PROGRAMMER regarding Potassium result. Patient is taking Furosemide 20mg PO Daily. Awaiting for any order. Patient is aware. Call light placed within reach all needs met promptly. Will continue to monitor.
[2021-04-01] MEDS ORDERED: POTASSIUM CHLORIDE 20 MEQ TAB.PRT.SR PO SCH ×2 (09:45→12:00)
--- NOTE | 2021-04-01 10:02 | NUR ---
Hold furosemide 20mg for Potassium result of 3. Waiting for Tennille López response.
[2021-04-01 16:39] VITALS: BP 111/63
--- NOTE | 2021-04-01 17:00 | NUR ---
Patient is complaining of constipation Notified Dr. Vizcarra and order for Dulcolax suppository one time.
[2021-04-01] MEDS ORDERED: BISACODYL 10 MG SUPP.RECT RC ONE (17:15)
[2021-04-01 18:09] LABS: *BILIRUBIN,URIN NEGATIVE (NEGATIVE); *BLOOD, URINE NEGATIVE (NEGATIVE); *CLARITY,URINE CLEAR (CLEAR); *COLOR,URINE YELLOW (YELLOW); *KETONES,URINE NEGATIVE (NEGATIVE); *UROBILINOGEN,URINE 0.2 E.U./dl (NORMAL); LEUKOCYTE ESTERASE ,URINE 1+ (NEGATIVE); NITRITE, URINE NEGATIVE (NEGATIVE); PH,URINE 8.5 (5.0-8.0); UGLUCOSE NEGATIVE (NEGATIVE)
[2021-04-01 18:17] LABS: *CREATININE,URINE 100.1 mg/dL (30-125); *URINE TOTAL PROTEIN RANDOM 21.5 mg/dL (<150/24HR)
[2021-04-01] MEDS: SENNOSIDES 1 TABLET PO SCH (20:14)
[2021-04-01] MEDS: ATORVASTATIN 10 MG TABLET PO SCH (20:14)
[2021-04-01] MEDS: DOXAZOSIN 2 MG TABLET PO SCH (20:15)
[2021-04-01 20:27] VITALS: BP 123/60
--- NOTE | 2021-04-01 20:49 | NUR ---
Received pt resting in bed. AAO x4. No acute distress noted. Denies pain/ discomfort. Due meds given as ordered. Safety measures maintained. Call light and personal items within reach. Will continue to monitor.
[2021-04-01 21:15] VITALS: BP 107/57
[2021-04-01 22:52] LABS: RBC,URINE NONE SEEN /HPF (0-3)
[2021-04-01 22:53] LABS: BACTERIA,URINE FEW /HPF (NONE SEEN); SQUAMOUS EPITHELIAL CELL,UR MODERATE /HPF (NONE SEEN)
[2021-04-01] MEDS: ALPRAZOLAM 0.25 MG TABLET PO PRN (23:36)
[2021-04-02] MEDS: ALBUTEROL SULFATE 1.25 MG/3 ML NEBU NEB SCH ×4 (01:27→20:18)
[2021-04-02] MEDS: IPRATROPIUM BROMIDE 0.5 MG/2.5 ML NEBU NEB SCH ×4 (01:27→20:18)
[2021-04-02 04:52] VITALS: BP 135/66
[2021-04-02] MEDS: hydrALAZINE HCL 50 MG TABLET PO SCH ×3 (06:18→20:48)
[2021-04-02] MEDS: LEVOTHYROXINE SODIUM 88 MCG TABLET PO SCH (06:18)
[2021-04-02] MEDS: PANTOPRAZOLE SODIUM 40 MG TABLET.DR PO SCH (06:18)
[2021-04-02 08:00] VITALS: BP 108/57
[2021-04-02] MEDS ORDERED: FLEET ENEMA 133 ML BOTTLE RC ONE (08:45)
[2021-04-02] MEDS: ASPIRIN 81 MG TAB.CHEW PO SCH (08:49)
[2021-04-02] MEDS: SODIUM CHLORIDE 1,000 MG TABLET PO SCH (08:50)
[2021-04-02] MEDS: CEphaleXIN 500 MG CAPSULE PO SCH ×2 (08:51→20:50)
[2021-04-02] MEDS: FUROSEMIDE 20 MG TABLET PO SCH (08:51)
[2021-04-02] MEDS: ASPIRIN/ACETAMINOPHEN/CAFFEINE TABLET PO PRN (08:51)
[2021-04-02] MEDS: CLOPIDOGREL 75 MG TABLET PO SCH (08:51)
[2021-04-02] MEDS: CETIRIZINE HCL 10 MG TABLET PO SCH (08:51)
[2021-04-02] MEDS: ALLOPURINOL 100 MG TABLET PO SCH (08:51)
[2021-04-02] MEDS: DOCUSATE SODIUM 100 MG CAPSULE PO SCH ×2 (09:00→16:59)
[2021-04-02] MEDS: METOPROLOL TARTRATE 50 MG TABLET PO SCH ×2 (09:00→17:00)
[2021-04-02] MEDS: DILTIAZEM HCL CD 240 MG CAP.SR.24H PO SCH (09:00)
[2021-04-02 09:11] LABS: BASOPHILS # (AUTO) 0.1 K/uL (0.0-8.0); BASOPHILS % (AUTO) 0.4 % (0.0-2.0); EOSINOPHILS # (AUTO) 0.6 K/uL (0.0-0.7); EOSINOPHILS % (AUTO) 4.1 % (0.0-7.0); HEMATOCRIT 38.3 % (31.2-41.9); HEMOGLOBIN 12.8 g/dL (10.9-14.3); LYMPHOCYTES # (AUTO) 1.2 K/uL (20.0-40.0); LYMPHOCYTES % (AUTO) 7.5 % (20.5-51.5); MEAN CORPUSCULAR HGB CONC 34 g/dL (32.3-35.6); MEAN CORPUSCULAR VOLUME 92.8 fL (75.5-95.3); MONOCYTES # (AUTO) 0.8 K/uL (2.0-10.0); MONOCYTES % (AUTO) 5.2 % (0.0-11.0); NEUTROPHILS # (AUTO) 12.8 K/uL (1.8-8.9); NEUTROPHILS % (AUTO) 82.8 % (38.5-71.5); PLATELET COUNT (AUTO) 248 K/uL (179-408); RED BLOOD CELL COUNT(AUTO) 4.13 MIL/uL (3.63-4.92); WHITE BLOOD COUNT (AUTO) 15.5 K/uL (3.8-11.8)
[2021-04-02 09:13] LABS: CARBON DIOXIDE 29 mmol/L (21-32); CHLORIDE 98 mmol/L (98-107); CREATININE 1.5 mg/dL (0.6-1.3); GLUCOSE 173 mg/dL (74-106); POTASSIUM 3.9 mmol/L (3.5-5.1); UREA NITROGEN, BLOOD 29 mg/dL (7-18)
[2021-04-02] MEDS: ENSURE ENLIVE (VAN) 240 ML LIQUID PO SCH (09:16)
--- NOTE | 2021-04-02 10:00 | NUR ---
Received patient in bed, alert and oriented x 4, on room air saturating at 95%, no s/s of distress. Pleasant and cooperative upon assessment. Patient complained of constipation. Notified Tennille López [employer] TRUCK DRIVER and order for fleet enema 1x and CBC and BMP for lab. Fleet enema administered and patient tolerated well. Patient had a bowel movement medium in size. Patient went off the bed for therapy but stayed on her bedroom with PT. All needs attended promptly. Will continue to monitor.
--- NOTE | 2021-04-02 14:55 | NUR ---
Blood pressure is 97/51 pulse is 105. Patient is relaxed and no s/s of distress noted. Notified Tennille López HORSE RACE STARTER and order for Hydralazine every 12 hours. Patient made aware.
[2021-04-02 16:14] VITALS: BP 112/62
--- NOTE | 2021-04-02 16:14 | NUR ---
INDIVIDUALIZED PLAN OF CARE
[2021-04-02 20:24] VITALS: BP 99/58
[2021-04-02] MEDS: DOXAZOSIN 2 MG TABLET PO SCH (20:50)
[2021-04-02] MEDS: SENNOSIDES 1 TABLET PO SCH (20:50)
[2021-04-02] MEDS: ATORVASTATIN 10 MG TABLET PO SCH (20:50)
[2021-04-02] MEDS: MAGNESIUM HYDROXIDE 30 ML LIQUID UDC PO PRN (22:04)
[2021-04-02] MEDS: ACETAMINOPHEN 325 MG TABLET PO PRN (23:55)
[2021-04-02] MEDS: ALPRAZOLAM 0.25 MG TABLET PO PRN (23:55)
[2021-04-03] MEDS: IPRATROPIUM BROMIDE 0.5 MG/2.5 ML NEBU NEB SCH ×4 (00:58→19:09)
[2021-04-03] MEDS: ALBUTEROL SULFATE 1.25 MG/3 ML NEBU NEB SCH ×4 (00:58→19:09)
[2021-04-03 04:24] VITALS: BP 132/74
[2021-04-03] MEDS: PANTOPRAZOLE SODIUM 40 MG TABLET.DR PO SCH (06:12)
[2021-04-03] MEDS: LEVOTHYROXINE SODIUM 88 MCG TABLET PO SCH (06:12)
--- NOTE | 2021-04-03 06:42 | NUR ---
Shift End Report: VS stable. Slept in between care. Medicated once for pain with relief. No further complaint presented. All needs attended and met. Continue current rehab plan of care.
[2021-04-03 08:00] VITALS: BP 124/61
[2021-04-03] MEDS: ENSURE ENLIVE (VAN) 240 ML LIQUID PO SCH (08:54)
[2021-04-03] MEDS: DOCUSATE SODIUM 100 MG CAPSULE PO SCH ×3 (09:23→17:15)
[2021-04-03] MEDS: ASPIRIN 81 MG TAB.CHEW PO SCH (09:23)
[2021-04-03] MEDS: CLOPIDOGREL 75 MG TABLET PO SCH (09:23)
[2021-04-03] MEDS: hydrALAZINE HCL 50 MG TABLET PO SCH ×2 (09:23→21:00)
[2021-04-03] MEDS: FUROSEMIDE 20 MG TABLET PO SCH (09:24)
[2021-04-03] MEDS: CETIRIZINE HCL 10 MG TABLET PO SCH (09:24)
[2021-04-03] MEDS: ACETAMINOPHEN 325 MG TABLET PO PRN ×3 (09:24→19:17)
[2021-04-03] MEDS: SODIUM CHLORIDE 1,000 MG TABLET PO SCH (09:24)
[2021-04-03] MEDS: ALLOPURINOL 100 MG TABLET PO SCH (09:24)
[2021-04-03] MEDS: METOPROLOL TARTRATE 50 MG TABLET PO SCH ×2 (09:26→17:15)
[2021-04-03] MEDS: DILTIAZEM HCL CD 240 MG CAP.SR.24H PO SCH (09:26)
[2021-04-03] MEDS: ALPRAZOLAM 0.25 MG TABLET PO PRN (12:03)
[2021-04-03 14:06] LABS: A/G RATIO 1.1 (0.7-1.7); ALBUMIN 2.9 g/dL (2.9-4.4); ALPHA-1-GLOBULIN 0.3 g/dL (0.0-0.4); ALPHA-2-GLOBULIN 0.9 g/dL (0.4-1.0); BETA GLOBULIN 0.9 g/dL (0.7-1.3); GAMMA GLOBULIN 0.6 g/dL (0.4-1.8); GLOBULIN, TOTAL 2.6 g/dL (2.2-3.9); M-SPIKE Not Observed g/dL (Not Observed)
[2021-04-03 15:55] VITALS: BP 137/58
--- NOTE | 2021-04-03 19:21 | NUR ---
Pt OOB in chair for dinner, assisted safely back to bed, no SOB, no acute distress. Due medications given per order, no a/r noted. Pt participated with Rehab Therapy today, tolerated well. Pt able to ambulate safely to bathroom with FWW, 1 BM in toilet noted. Yoly care provided. Pt's son Arcenio at bedside this afternoon, nursing care discussed with pt and son. Pt reported 9/10 generalized pain, per pt Tylenol not effective. Dr. Vizcarra notified, advised Percocet for pain, pt declined, would like to follow up with Dr. Vizcarra tomorrow and requested PRN Tylenol. Dr. Vizcarra notified. Will endorse to plumber's helper nurse for continuity of care.
[2021-04-03 20:00] VITALS: BP 94/48
[2021-04-03] MEDS: SENNOSIDES 1 TABLET PO SCH (21:00)
[2021-04-03] MEDS: DOXAZOSIN 2 MG TABLET PO SCH (21:00)
[2021-04-03] MEDS: ATORVASTATIN 10 MG TABLET PO SCH (22:37)
[2021-04-04] MEDS: ALPRAZOLAM 0.25 MG TABLET PO PRN ×2 (00:29→08:14)
[2021-04-04] MEDS: IPRATROPIUM BROMIDE 0.5 MG/2.5 ML NEBU NEB SCH ×4 (01:03→18:22)
[2021-04-04] MEDS: ALBUTEROL SULFATE 1.25 MG/3 ML NEBU NEB SCH ×4 (01:03→18:22)
[2021-04-04 04:00] VITALS: BP 120/62
[2021-04-04 06:26] LABS: BASOPHILS % (AUTO) 0.4 % (0.0-2.0); EOSINOPHILS # (AUTO) 0.7 K/uL (0.0-0.7); EOSINOPHILS % (AUTO) 5.8 % (0.0-7.0); HEMATOCRIT 30.1 % (31.2-41.9); LYMPHOCYTES # (AUTO) 0.9 K/uL (20.0-40.0); LYMPHOCYTES % (AUTO) 7.4 % (20.5-51.5); MEAN CORPUSCULAR HEMOGLOBIN 31.2 uug (24.7-32.8); MEAN CORPUSCULAR HGB CONC 33 g/dL (32.3-35.6); MEAN CORPUSCULAR VOLUME 93.9 fL (75.5-95.3); MONOCYTES # (AUTO) 0.8 K/uL (2.0-10.0); MONOCYTES % (AUTO) 6.8 % (0.0-11.0); NEUTROPHILS # (AUTO) 9.3 K/uL (1.8-8.9); NEUTROPHILS % (AUTO) 79.6 % (38.5-71.5); PLATELET COUNT (AUTO) 157 K/uL (179-408); WHITE BLOOD COUNT (AUTO) 11.6 K/uL (3.8-11.8)
[2021-04-04 06:36] LABS: CARBON DIOXIDE 33 mmol/L (21-32); CHLORIDE 98 mmol/L (98-107); CREATININE 1.8 mg/dL (0.6-1.3); GLUCOSE 98 mg/dL (74-106); MAGNESIUM 2.8 mg/dL (1.8-2.4); PHOSPHOROUS 4.5 mg/dL (2.5-4.9); POTASSIUM 4.4 mmol/L (3.5-5.1); UREA NITROGEN, BLOOD 30 mg/dL (7-18)
[2021-04-04] MEDS: PANTOPRAZOLE SODIUM 40 MG TABLET.DR PO SCH (06:46)
[2021-04-04] MEDS: LEVOTHYROXINE SODIUM 88 MCG TABLET PO SCH (06:46)
--- NOTE | 2021-04-04 06:49 | NUR ---
Patient alert oriented x 4 saturation decreased to 86% last night before RT administered breathing treatment she robby was placed on 2 Lpm oxygen via n/c no signs of respiratory distress or pain. Patients last Bowel movement was this morning 04/04/21. Bed in low position and call light within reach. Will endorse to next shift nurse pt is due for xray today.
[2021-04-04 07:58] VITALS: BP 98/51
[2021-04-04] MEDS: ASPIRIN 81 MG TAB.CHEW PO SCH (08:14)
[2021-04-04] MEDS: DOCUSATE SODIUM 100 MG CAPSULE PO SCH ×2 (08:20→17:00)
[2021-04-04] MEDS: FUROSEMIDE 20 MG TABLET PO SCH (08:20)
[2021-04-04] MEDS: SODIUM CHLORIDE 1,000 MG TABLET PO SCH (08:20)
[2021-04-04] MEDS: ALLOPURINOL 100 MG TABLET PO SCH (08:20)
[2021-04-04] MEDS: CETIRIZINE HCL 10 MG TABLET PO SCH (08:20)
[2021-04-04] MEDS: CLOPIDOGREL 75 MG TABLET PO SCH (08:20)
[2021-04-04] MEDS: DILTIAZEM HCL CD 240 MG CAP.SR.24H PO SCH (08:20)
[2021-04-04] MEDS: METOPROLOL TARTRATE 50 MG TABLET PO SCH ×2 (08:21→17:00)
[2021-04-04] MEDS: hydrALAZINE HCL 50 MG TABLET PO SCH ×2 (08:22→20:38)
[2021-04-04] MEDS: ENSURE ENLIVE (VAN) 240 ML LIQUID PO SCH (08:22)
--- NOTE | 2021-04-04 15:37 | NUR ---
Pt is resting in bed at this time with no signs of distress, kept on O2 2LPM, currently saturating at 91% on 2LPM. This morning Dr Eid came to assess patient, RN was at bedside. Pt was saturating at 97 to 100% on 2LPM while breathing tx is ongoing. .Per Dr Eid, keep O2 sat between 88 -92%. Removed o2 at around 09 AM, patient was saturating good at 94% until about 1PM, RN rechecked, and it was down to 87% on RA. Tried 1LPM of O2 via NC, it went up to 89%. Titrated to 2LPM and achieve 90-92% O2 Sat. Not in acute distress. 1x Xanax was given in the morning and it has help patient relax and feel less pain. Will continue to monitor.
[2021-04-04 16:09] VITALS: BP 103/49
[2021-04-04] MEDS: ASPIRIN/ACETAMINOPHEN/CAFFEINE TABLET PO PRN (19:58)
[2021-04-04 20:28] VITALS: BP 100/53
[2021-04-04] MEDS: SENNOSIDES 1 TABLET PO SCH (20:36)
[2021-04-04] MEDS: ATORVASTATIN 10 MG TABLET PO SCH (20:36)
[2021-04-04] MEDS: DOXAZOSIN 2 MG TABLET PO SCH (20:37)
[2021-04-05] MEDS: ALBUTEROL SULFATE 1.25 MG/3 ML NEBU NEB SCH ×4 (02:00→19:45)
[2021-04-05] MEDS: IPRATROPIUM BROMIDE 0.5 MG/2.5 ML NEBU NEB SCH ×4 (02:00→19:45)
--- NOTE | 2021-04-05 02:00 | NUR ---
Pt asleep. No s/s of respiratory distress noted. HHN tx not given. water filterer notified.
[2021-04-05 04:40] VITALS: BP 141/61
--- NOTE | 2021-04-05 05:56 | NUR ---
Shift End Report: Slept good. Medicated once for complaint of headache and both knees. No further complaint presented. All needs attended and met. No significant event reported. VS stable. No s/s of hypo/hyperglycemia. Continue current rehab plan of care.
[2021-04-05] MEDS: PANTOPRAZOLE SODIUM 40 MG TABLET.DR PO SCH (06:27)
[2021-04-05] MEDS: LEVOTHYROXINE SODIUM 88 MCG TABLET PO SCH (06:28)
[2021-04-05 07:32] VITALS: BP 126/60
[2021-04-05] MEDS: ALLOPURINOL 100 MG TABLET PO SCH (08:13)
[2021-04-05] MEDS: ASPIRIN 81 MG TAB.CHEW PO SCH (08:13)
[2021-04-05] MEDS: CETIRIZINE HCL 10 MG TABLET PO SCH (08:14)
[2021-04-05] MEDS: DOCUSATE SODIUM 100 MG CAPSULE PO SCH ×2 (08:14→16:37)
[2021-04-05] MEDS: SODIUM CHLORIDE 1,000 MG TABLET PO SCH (08:14)
[2021-04-05] MEDS: DILTIAZEM HCL CD 240 MG CAP.SR.24H PO SCH (08:23)
[2021-04-05] MEDS: METOPROLOL TARTRATE 50 MG TABLET PO SCH ×2 (08:23→16:37)
[2021-04-05] MEDS: CLOPIDOGREL 75 MG TABLET PO SCH (08:23)
[2021-04-05] MEDS: FUROSEMIDE 20 MG TABLET PO SCH (08:23)
[2021-04-05] MEDS: hydrALAZINE HCL 50 MG TABLET PO SCH ×2 (08:24→20:33)
[2021-04-05] MEDS: ENSURE ENLIVE (VAN) 240 ML LIQUID PO SCH (08:24)
[2021-04-05] MEDS: ACETAMINOPHEN 325 MG TABLET PO PRN (09:17)
--- NOTE | 2021-04-05 14:16 | NUR ---
INTERDISCIPLINARY TEAM CONFERENCE
[2021-04-05 16:00] VITALS: BP 94/44
[2021-04-05 20:18] VITALS: BP 115/48
[2021-04-05] MEDS: SENNOSIDES 1 TABLET PO SCH (20:31)
[2021-04-05] MEDS: ATORVASTATIN 10 MG TABLET PO SCH (20:32)
[2021-04-05] MEDS: DOXAZOSIN 2 MG TABLET PO SCH (20:32)
[2021-04-06] MEDS: ACETAMINOPHEN 325 MG TABLET PO PRN ×2 (01:06→14:52)
[2021-04-06] MEDS: IPRATROPIUM BROMIDE 0.5 MG/2.5 ML NEBU NEB SCH ×3 (01:48→13:38)
[2021-04-06] MEDS: ALBUTEROL SULFATE 1.25 MG/3 ML NEBU NEB SCH ×3 (01:48→13:38)
[2021-04-06] MEDS: ALPRAZOLAM 0.25 MG TABLET PO PRN ×2 (03:09→14:52)
[2021-04-06 04:18] VITALS: BP 124/55
--- NOTE | 2021-04-06 05:51 | NUR ---
Patient awake alert and able to make needs known,c/o headache medicated once with good result.Incontinent to bladder.Voided well.VSS.No acute distress noted through out the shift.
[2021-04-06] MEDS: LEVOTHYROXINE SODIUM 88 MCG TABLET PO SCH (06:08)
[2021-04-06] MEDS: PANTOPRAZOLE SODIUM 40 MG TABLET.DR PO SCH (06:09)
[2021-04-06 07:49] VITALS: BP 133/60
[2021-04-06] MEDS: METOPROLOL TARTRATE 50 MG TABLET PO SCH (08:26)
[2021-04-06] MEDS: ENSURE ENLIVE (VAN) 240 ML LIQUID PO SCH (08:26)
[2021-04-06] MEDS: CLOPIDOGREL 75 MG TABLET PO SCH (08:27)
[2021-04-06] MEDS: DOCUSATE SODIUM 100 MG CAPSULE PO SCH (08:27)
[2021-04-06] MEDS: ASPIRIN 81 MG TAB.CHEW PO SCH (08:27)
[2021-04-06] MEDS: CETIRIZINE HCL 10 MG TABLET PO SCH (08:27)
[2021-04-06] MEDS: SODIUM CHLORIDE 1,000 MG TABLET PO SCH (08:27)
[2021-04-06] MEDS: ALLOPURINOL 100 MG TABLET PO SCH (08:27)
[2021-04-06] MEDS: FUROSEMIDE 20 MG TABLET PO SCH (08:27)
[2021-04-06] MEDS: DILTIAZEM HCL CD 240 MG CAP.SR.24H PO SCH (08:27)
[2021-04-06 08:28] VITALS: BP 133/60
[2021-04-06] MEDS: hydrALAZINE HCL 50 MG TABLET PO SCH (08:28)
--- NOTE | 2021-04-06 15:01 | NUR ---
patient is alert, oriented x4, no sob, resp even nonlabored,skin warm and dry to touch, patient is discharging home today, belongigs are accounted and signed, no skin issues, patient stated she has oxygen at home, teaching provided on oxygen use at home, patient verbalized understanding of it, teaching provided about each medication and patient verbalized understanding of it, stable condition, able to ambulate with FWW with assist.
--- NOTE | 2021-04-06 15:23 | NUR ---
patient picked up by [facility] ambulance, patient is alert, oriented x4, continue on o2 0.5 liter via nasal canula, belongings sent with patient, prescription sent with patient. ID removed, no IV access on patient.
== END 2021-04-06 15:30 | disposition home health service (06) | DRG 189 ==
PROVIDERS: ADMIT Family Medicine; ATTEND Physical Medicine & Rehabilitation Pain Medicine
DX: J96.21 Acute and chronic respiratory failure with hypoxia (principal); I50.33 Acute on chronic diastolic (congestive) heart failure; N17.0 Acute kidney failure with tubular necrosis; I13.0 Hypertensive heart and chronic kidney disease with heart failure and stage 1 through stage 4 chronic kidney disease, or unspecified chronic kidney disease; N39.0 Urinary tract infection, site not specified; I42.2 Other hypertrophic cardiomyopathy; J44.1 Chronic obstructive pulmonary disease with (acute) exacerbation; E87.1 Hypo-osmolality and hyponatremia; E87.2 Acidosis; J96.22 Acute and chronic respiratory failure with hypercapnia; D64.9 Anemia, unspecified; E03.9 Hypothyroidism, unspecified; E11.22 Type 2 diabetes mellitus with diabetic chronic kidney disease; E78.5 Hyperlipidemia, unspecified; F03.90 Unspecified dementia, unspecified severity, without behavioral disturbance, psychotic disturbance, mood disturbance, and anxiety; F32.9 Major depressive disorder, single episode, unspecified; R26.89 Other abnormalities of gait and mobility; F41.9 Anxiety disorder, unspecified; N18.30 Chronic kidney disease, stage 3 unspecified; R53.1 Weakness; I25.10 Atherosclerotic heart disease of native coronary artery without angina pectoris; I34.0 Nonrheumatic mitral (valve) insufficiency; I27.20 Pulmonary hypertension, unspecified; I48.91 Unspecified atrial fibrillation; M19.90 Unspecified osteoarthritis, unspecified site; Z66 Do not resuscitate; Z85.41 Personal history of malignant neoplasm of cervix uteri; Z87.891 Personal history of nicotine dependence; Z90.710 Acquired absence of both cervix and uterus; Z95.0 Presence of cardiac pacemaker; G89.29 Other chronic pain; M54.5 Low back pain; Z88.5 Allergy status to narcotic agent; Z88.8 Allergy status to other drugs, medicaments and biological substances; Z91.040 Latex allergy status; Z91.011 Allergy to milk products
CPT/HCPCS: 36415; 71045; 83735; 83970; 84100; 84155; 84156; 84165; 84300; 85025; 87086; 94640; 94664; A9150; J3590; J8499

== ENCOUNTER 2021-07-01 20:48 | Inpatient (IN) | payer MEDICARE, BC ==
[~2021-07-01] VITALS: Ht 162.6 cm; Wt 66.7 kg
--- NOTE | 2021-07-01 20:35 | NUR ---
Patient arrived in the unit via ambulance accompanied by EMT's. Awake, alert in the [place], no s/s of respiratory distress with continuos oxygen via NC. Gently transferred from [place] to bed with 2 people assist. Skin assessment performed during turning and repositioning. F/c intact and patent, draining QS amount of clear yellow urine. Routine admission care done. Plan of care initiated.
[~2021-07-01 20:48] MED LIST changes: +ALPR0.255 PO; +ASPI81TA31 PO; +ATOR10TA PO; +CETI-90 PO; +DILT240C88 PO; +DOCU100C36 PO; +FURO-152 PO; -HEPA500013 IJ; +LACT-246 PO; +MAGN30OR PO; +MAGN400O6 PO; -METO100T14 PO; +PANT40TA49 PO; +[UNRECOGNIZED DRUG - CODE] PO
[2021-07-01 21:15] VITALS: BP 153/75
[2021-07-01] MEDS ORDERED: CEFE1FRO IV (21:40)
[2021-07-01] MEDS ORDERED: CYCL5TAB PO (21:40)
[2021-07-01] MEDS ORDERED: IPRA0.2S48 NEB (21:40)
[2021-07-01] MEDS ORDERED: ENOX40DI SQ (21:40)
[2021-07-01] MEDS ORDERED: ALBU2.5V13 NEB (21:40)
[2021-07-01] MEDS ORDERED: ACET-637 PO (21:40)
[2021-07-01] MEDS ORDERED: CETI-90 PO (21:40)
[2021-07-01] MEDS ORDERED: ONDA-104 IVP (21:40)
[2021-07-01] MEDS ORDERED: METO100T14 PO (21:40)
[2021-07-01] MEDS ORDERED: HYDR-4075 IVP (21:40)
[2021-07-01] MEDS ORDERED: ACETAMINOPHEN ES 500 MG TABLET PO PRN (22:15)
[2021-07-01] MEDS ORDERED: ASPIRIN/ACETAMINOPHEN/CAFFEINE TABLET PO PRN (22:15)
[2021-07-01] MEDS ORDERED: MAGNESIUM HYDROXIDE 30 ML LIQUID UDC PO PRN (22:15)
[2021-07-01] MEDS ORDERED: SENNOSIDES 1 TABLET PO PRN (22:15)
[2021-07-01] MEDS ORDERED: CETIRIZINE HCL 10 MG TABLET PO PRN (22:15)
[2021-07-01] MEDS: IPRATROPIUM BROMIDE 0.5 MG/2.5 ML NEBU NEB SCH (22:51)
[2021-07-01] MEDS: ALBUTEROL SULFATE 2.5 MG/ 0.5 ML NEBU NEB SCH (22:52)
[2021-07-01] MEDS ORDERED: MAG HYDROX/AL HYDROX/SIMETH 30 ML LIQUID UDC PO PRN (23:00)
[2021-07-01] MEDS ORDERED: ALBUTEROL SULFATE 1.25 MG/3 ML NEBU NEB SCH (23:15)
[2021-07-02] MEDS ORDERED: ALBUTEROL SULFATE 1.25 MG/3 ML NEBU NEB SCH (01:30)
[2021-07-02] MEDS ORDERED: IPRATROPIUM BROMIDE 0.5 MG/2.5 ML NEBU NEB SCH (01:30)
[2021-07-02] MEDS: ALBUTEROL SULFATE 2.5 MG/ 0.5 ML NEBU NEB SCH ×6 (02:30→22:56)
[2021-07-02] MEDS: IPRATROPIUM BROMIDE 0.5 MG/2.5 ML NEBU NEB SCH ×6 (02:30→22:56)
[2021-07-02 04:42] VITALS: BP 143/59
[2021-07-02] MEDS ORDERED: CEFEPIME HCL 1 G in IV DEXTROSE 5% 50 ML IV SCH ×2 (06:00→09:00)
[2021-07-02] MEDS: CYCLOBENZAPRINE HCL 10 MG TABLET PO SCH ×3 (06:03→21:22)
--- NOTE | 2021-07-02 06:26 | NUR ---
Shift End Report: Slept fairly throughout the night. Seen mostly watching TV. Medicated once for complaint of headache with relief, otherwise no further complaint presented. No significant event reported. Continue care as planned.
[2021-07-02 07:26] LABS: HEMATOCRIT 26.2 % (31.2-41.9); MEAN CORPUSCULAR HEMOGLOBIN 32.3 uug (24.7-32.8); MEAN CORPUSCULAR VOLUME 92.3 fL (75.5-95.3); PLATELET COUNT (AUTO) 142 K/uL (179-408)
[2021-07-02] MEDS ORDERED: LEVOTHYROXINE SODIUM 88 MCG TABLET PO SCH (07:30)
[2021-07-02] MEDS ORDERED: PANTOPRAZOLE SODIUM 40 MG TABLET.DR PO SCH (07:30)
[2021-07-02 07:53] LABS: CARBON DIOXIDE 36 mmol/L (21-32); CHLORIDE 99 mmol/L (98-107); CREATININE 1.4 mg/dL (0.6-1.3); GLUCOSE 79 mg/dL (74-106); PHOSPHOROUS 3.7 mg/dL (2.5-4.9); POTASSIUM 4.3 mmol/L (3.5-5.1); UREA NITROGEN, BLOOD 24 mg/dL (7-18)
[2021-07-02 08:00] VITALS: BP 143/60
[2021-07-02] MEDS ORDERED: ENSURE ENLIVE (VAN) 240 ML LIQUID PO SCH (08:00)
--- NOTE | 2021-07-02 08:00 | NUR ---
Received patient in bed, alert and oriented x 3-4, cooperative upon assessment, patient in oxygen at 2 LPM via nasal cannula, saturating at 96%. Patient wean off oxygen at 1LPM and continuously monitoring for an hour. Patient is saturating at 94-95% and denies any shortness of breath. All due meds given per MD order. BERTA PICC line intact. Call light placed within reach.
[2021-07-02] MEDS: METOPROLOL TARTRATE 50 MG TABLET PO SCH ×2 (08:29→20:55)
[2021-07-02] MEDS: DOCUSATE SODIUM 100 MG CAPSULE PO SCH ×2 (08:30→16:18)
[2021-07-02] MEDS: CLOPIDOGREL 75 MG TABLET PO SCH (08:30)
[2021-07-02] MEDS: ALLOPURINOL 100 MG TABLET PO SCH (08:37)
[2021-07-02] MEDS ORDERED: CETIRIZINE HCL 10 MG TABLET PO SCH (09:00)
[2021-07-02] MEDS ORDERED: SODIUM CHLORIDE 1,000 MG TABLET PO SCH (09:00)
[2021-07-02] MEDS ORDERED: DILTIAZEM HCL CD 240 MG CAP.SR.24H PO SCH (09:00)
[2021-07-02] MEDS ORDERED: ASPIRIN 81 MG TAB.CHEW PO SCH (09:00)
[2021-07-02] MEDS ORDERED: CEFEPIME HCL 1 G in IV DEXTROSE 5% 50 ML IV ONE (09:00)
[2021-07-02] MEDS ORDERED: hydrALAZINE HCL 50 MG TABLET PO SCH (09:00)
[2021-07-02] MEDS ORDERED: FUROSEMIDE 20 MG TABLET PO SCH (09:00)
[2021-07-02] MEDS: ACETAMINOPHEN ES 500 MG TABLET PO PRN ×2 (09:08→23:27)
--- NOTE | 2021-07-02 14:30 | NUR ---
Seen by Dr. Rascon and ordered to remove her hunt catheter . Patient on monitoring for any urinary retention. Patient on oxygen via nasal cannula at 1LPM saturating at 95% and no sob noted.
[2021-07-02 15:36] VITALS: BP 114/64
--- NOTE | 2021-07-02 19:02 | NUR ---
Patient has void and changed her adult diaper. Bladder is not distended. Will endorsed accordingly.
[2021-07-02 20:30] VITALS: BP 119/56
[2021-07-02] MEDS: ENOXAPARIN SODIUM 30 MG/0.3 ML DISP.SYRIN SQ SCH (20:56)
[2021-07-02] MEDS ORDERED: ATORVASTATIN 10 MG TABLET PO SCH (21:00)
[2021-07-02] MEDS ORDERED: DOXAZOSIN 2 MG TABLET PO SCH (21:00)
[2021-07-03] MEDS: IPRATROPIUM BROMIDE 0.5 MG/2.5 ML NEBU NEB SCH ×6 (03:31→23:18)
[2021-07-03] MEDS: ALBUTEROL SULFATE 2.5 MG/ 0.5 ML NEBU NEB SCH ×6 (03:31→23:18)
[2021-07-03] MEDS: ACETAMINOPHEN ES 500 MG TABLET PO PRN ×2 (04:38→13:35)
[2021-07-03] MEDS: Z GUARD REMEDY PASTE 57 GM TUBE TOP PRN (04:39)
--- NOTE | 2021-07-03 04:40 | NUR ---
Complaint of burning/itchiness on vaginal area. Good zayda care rendered. Cyrtec and tylenol given. Will monitor.
[2021-07-03] MEDS: hydrALAZINE HCL 20 MG/1 ML VIAL IV PRN ×2 (04:47→08:26)
--- NOTE | 2021-07-03 04:51 | NUR ---
BP 202/98, 88 HR, c/o Primo YEN made aware with new order of Hydralazine 10 mg IV every 4 hours as needed SBP>160; DPB >110., noted and given. Will monitor after an hour.
[2021-07-03 05:45] VITALS: BP 199/93
[2021-07-03] MEDS: levoFLOXacin 750 MG TABLET PO SCH (06:16)
[2021-07-03] MEDS: CYCLOBENZAPRINE HCL 10 MG TABLET PO SCH ×3 (06:16→22:20)
[2021-07-03 06:37] VITALS: BP 192/87
--- NOTE | 2021-07-03 06:43 | NUR ---
BP re checked 192/87, HR 96. Will endorse to oncoming nurse accordingly.
[2021-07-03 08:00] VITALS: BP 189/89
[2021-07-03] MEDS: DOCUSATE SODIUM 100 MG CAPSULE PO SCH ×2 (08:24→16:52)
[2021-07-03] MEDS: METOPROLOL TARTRATE 50 MG TABLET PO SCH ×2 (08:25→20:16)
[2021-07-03] MEDS: ALLOPURINOL 100 MG TABLET PO SCH (08:26)
[2021-07-03] MEDS: CLOPIDOGREL 75 MG TABLET PO SCH (08:26)
--- NOTE | 2021-07-03 14:20 | NUR ---
Patient c/o burning upon urination and "feeling hot". Temp 100.2, Tylenol administered. Seen by Dr. Wyatt. UA ordered. All needs met. Will continue to monitor.
[2021-07-03 15:00] VITALS: BP 152/72
--- NOTE | 2021-07-03 18:26 | NUR ---
Reassessed temperature at 98.6. Straight catheterized pt to obtain urine specimen. Pt tolerated well. No signs or symptoms of acute distress noted. Will continue to monitor and endorse to restaurant shift leader nurse.
[2021-07-03 18:36] LABS: *BILIRUBIN,URIN NEGATIVE (NEGATIVE); *CLARITY,URINE CLEAR (CLEAR); *COLOR,URINE YELLOW (YELLOW); *KETONES,URINE NEGATIVE (NEGATIVE); *UROBILINOGEN,URINE 0.2 E.U./dl (NORMAL); LEUKOCYTE ESTERASE ,URINE TRACE (NEGATIVE); NITRITE, URINE NEGATIVE (NEGATIVE); PH,URINE 8.5 (5.0-8.0); UGLUCOSE NEGATIVE (NEGATIVE)
[2021-07-03 18:40] LABS: *BLOOD, URINE TRACE (NEGATIVE)
[2021-07-03 18:43] LABS: BACTERIA,URINE NONE SEEN /HPF (NONE SEEN); SQUAMOUS EPITHELIAL CELL,UR FEW /HPF (NONE SEEN); URINE AMORPHOUS PHOSPHATES FEW /HPF
[2021-07-03] MEDS: ENOXAPARIN SODIUM 30 MG/0.3 ML DISP.SYRIN SQ SCH (20:18)
[2021-07-03] MEDS: ALPRAZOLAM 0.25 MG TABLET PO PRN (20:19)
[2021-07-03 20:38] VITALS: BP 149/67
[2021-07-04] MEDS: ALBUTEROL SULFATE 2.5 MG/ 0.5 ML NEBU NEB SCH ×5 (03:16→21:34)
[2021-07-04] MEDS: IPRATROPIUM BROMIDE 0.5 MG/2.5 ML NEBU NEB SCH ×5 (03:16→21:34)
[2021-07-04 04:30] VITALS: BP 116/63
[2021-07-04] MEDS: CYCLOBENZAPRINE HCL 10 MG TABLET PO SCH ×3 (05:38→21:00)
[2021-07-04 07:40] VITALS: BP 117/60
[2021-07-04] MEDS: DOCUSATE SODIUM 100 MG CAPSULE PO SCH ×2 (08:08→16:11)
[2021-07-04] MEDS: ALLOPURINOL 100 MG TABLET PO SCH (08:08)
[2021-07-04] MEDS: CLOPIDOGREL 75 MG TABLET PO SCH (08:08)
[2021-07-04] MEDS: METOPROLOL TARTRATE 50 MG TABLET PO SCH ×2 (08:24→20:06)
[2021-07-04] MEDS: ACETAMINOPHEN ES 500 MG TABLET PO PRN (09:56)
--- NOTE | 2021-07-04 14:47 | NUR ---
INDIVIDUALIZED PLAN OF CARE
[2021-07-04 15:21] VITALS: BP 106/58
[2021-07-04] MEDS: ENSURE ENLIVE (VAN) 240 ML LIQUID PO SCH (16:55)
[2021-07-04] MEDS: ENOXAPARIN SODIUM 30 MG/0.3 ML DISP.SYRIN SQ SCH (20:08)
[2021-07-04 20:25] VITALS: BP 120/56
[2021-07-05] MEDS: IPRATROPIUM BROMIDE 0.5 MG/2.5 ML NEBU NEB SCH ×7 (00:23→22:31)
[2021-07-05] MEDS: ALBUTEROL SULFATE 2.5 MG/ 0.5 ML NEBU NEB SCH ×7 (00:24→22:31)
[2021-07-05] MEDS: ACETAMINOPHEN ES 500 MG TABLET PO PRN ×4 (01:06→20:29)
[2021-07-05 04:10] VITALS: BP 115/77
[2021-07-05] MEDS: CYCLOBENZAPRINE HCL 10 MG TABLET PO SCH ×3 (05:08→21:11)
[2021-07-05] MEDS: levoFLOXacin 750 MG TABLET PO SCH (05:08)
[2021-07-05 07:43] VITALS: BP 115/49
[2021-07-05] MEDS: CLOPIDOGREL 75 MG TABLET PO SCH (09:30)
[2021-07-05] MEDS: ALLOPURINOL 100 MG TABLET PO SCH (09:30)
[2021-07-05] MEDS: DOCUSATE SODIUM 100 MG CAPSULE PO SCH ×2 (09:30→17:12)
[2021-07-05] MEDS: METOPROLOL TARTRATE 50 MG TABLET PO SCH ×2 (09:30→20:29)
[2021-07-05] MEDS: ENSURE ENLIVE (VAN) 240 ML LIQUID PO SCH ×2 (09:31→17:12)
[2021-07-05 15:19] VITALS: BP 111/51
--- NOTE | 2021-07-05 16:01 | NUR ---
INTERDISCIPLINARY TEAM CONFERENCE
--- NOTE | 2021-07-05 18:08 | NUR ---
Patient is alert/oriented. Able to make needs known. Transferred patient from 329 to 315 via bed due to room was hot, tolerated well. Requested pain medication for headache. Children was at bedside to visit, updated with the patients condition. No distress identified. Frequent visual check done. Kept call light within reach. Assisted with ADLs. All needs attended. Kept environment safe. All due meds given as ordered. Will endorse to the next shift for continuity of care.
[2021-07-05 20:00] VITALS: BP 108/56
[2021-07-05] MEDS: ENOXAPARIN SODIUM 30 MG/0.3 ML DISP.SYRIN SQ SCH (20:31)
[2021-07-06] MEDS: ACETAMINOPHEN ES 500 MG TABLET PO PRN ×2 (01:28→08:57)
[2021-07-06] MEDS: ALPRAZOLAM 0.25 MG TABLET PO PRN ×2 (02:45→08:58)
[2021-07-06] MEDS: IPRATROPIUM BROMIDE 0.5 MG/2.5 ML NEBU NEB SCH ×6 (03:30→23:53)
[2021-07-06] MEDS: ALBUTEROL SULFATE 2.5 MG/ 0.5 ML NEBU NEB SCH ×6 (03:30→23:53)
[2021-07-06 04:00] VITALS: BP 128/57
[2021-07-06] MEDS: CYCLOBENZAPRINE HCL 10 MG TABLET PO SCH ×3 (05:30→21:33)
--- NOTE | 2021-07-06 06:22 | NUR ---
Received patient on bed with no respiratory distress upon initial rounds. She is alert/oriented x4, able to make needs known. Tylenol PRN and Xanax PRN given, tolerated well and noted effective. Slept intermittently throughout the night. All needs attended. Call light placed within reach. Frequent visual checks done. Will endorse to next shift for continuity of care.
[2021-07-06 06:37] LABS: HEMATOCRIT 26.1 % (31.2-41.9); MEAN CORPUSCULAR VOLUME 93.2 fL (75.5-95.3); PLATELET COUNT (AUTO) 155 K/uL (179-408)
[2021-07-06 07:19] LABS: BILIRUBIN,TOTAL 0.3 mg/dL (0.2-1.0); CREATININE 1.2 mg/dL (0.6-1.3); MAGNESIUM 1.8 mg/dL (1.8-2.4); PHOSPHOROUS 4.2 mg/dL (2.5-4.9); POTASSIUM 4.1 mmol/L (3.5-5.1); TOTAL PROTEIN, SERUM 5.2 g/dL (6.4-8.2)
[2021-07-06 07:35] LABS: THYROID STIMULATING HORMONE 8.3 mIU/mL (0.358-3.740)
[2021-07-06 08:00] VITALS: BP 145/63
[2021-07-06] MEDS: DOCUSATE SODIUM 100 MG CAPSULE PO SCH ×2 (08:45→17:19)
[2021-07-06] MEDS: CLOPIDOGREL 75 MG TABLET PO SCH (08:45)
[2021-07-06] MEDS: ALLOPURINOL 100 MG TABLET PO SCH (08:46)
[2021-07-06] MEDS: ENSURE ENLIVE (VAN) 240 ML LIQUID PO SCH ×2 (08:47→17:19)
[2021-07-06] MEDS: METOPROLOL TARTRATE 50 MG TABLET PO SCH ×2 (08:47→21:31)
[2021-07-06] MEDS: FERROUS GLUCONATE 324 MG TABLET PO SCH (14:34)
[2021-07-06 16:00] VITALS: BP 117/54
[2021-07-06 20:00] VITALS: BP 111/53
[2021-07-06] MEDS: ENOXAPARIN SODIUM 30 MG/0.3 ML DISP.SYRIN SQ SCH (21:32)
--- NOTE | 2021-07-06 22:33 | NUR ---
PT STATED DIDN'T HAVE BM FOR 5 DAYS AND ASK FOR SUPPOSITORY, GIVEN PRUNE JUICE FOR NO PRN ORDER. DR VELÁZQUEZ WAS IN FLOOR AND ORDERED SUPPOSITORY PER PT. ADMINISTER SUPPOSITORY, WILL CONTINUE TO MONITOR PT FOR BM.
[2021-07-06] MEDS ORDERED: BISACODYL 10 MG SUPP.RECT RC PRN (23:00)
[2021-07-06] MEDS: MAG HYDROX/AL HYDROX/SIMETH 30 ML LIQUID UDC PO PRN (23:31)
[2021-07-07] MEDS: IPRATROPIUM BROMIDE 0.5 MG/2.5 ML NEBU NEB SCH ×6 (03:35→23:56)
[2021-07-07] MEDS: ALBUTEROL SULFATE 2.5 MG/ 0.5 ML NEBU NEB SCH ×6 (03:35→23:57)
[2021-07-07 04:00] VITALS: BP 115/57
[2021-07-07] MEDS: levoFLOXacin 750 MG TABLET PO SCH (06:02)
[2021-07-07] MEDS: CYCLOBENZAPRINE HCL 10 MG TABLET PO SCH ×3 (06:02→21:05)
[2021-07-07] MEDS: LEVOTHYROXINE SODIUM 25 MCG TABLET PO SCH (06:02)
--- NOTE | 2021-07-07 06:53 | NUR ---
Received patient on bed with no respiratory distress upon initial rounds. She is alert/oriented x4, able to make needs known. Seen examined by Shama NEAL with new order of Gabapentin HS. Slept intermittently throughout the night. All needs attended. Call light placed within reach. Frequent visual checks done. Will endorse to next shift for continuity of care. Addendum: 07/07/21 at 0658 by TRICIA FRASER RN Correction: New order for Dulcolax supp PRN and Maalox PRN. Bowel movement x1 noted.
[2021-07-07 08:00] VITALS: BP 154/68
[2021-07-07] MEDS: METOPROLOL TARTRATE 50 MG TABLET PO SCH ×2 (09:28→21:00)
[2021-07-07] MEDS: ENSURE ENLIVE (VAN) 240 ML LIQUID PO SCH ×2 (09:28→17:01)
[2021-07-07] MEDS: FERROUS GLUCONATE 324 MG TABLET PO SCH (09:28)
[2021-07-07] MEDS: DOCUSATE SODIUM 100 MG CAPSULE PO SCH ×2 (09:28→17:01)
[2021-07-07] MEDS: FUROSEMIDE 20 MG TABLET PO SCH (09:28)
[2021-07-07] MEDS: CLOPIDOGREL 75 MG TABLET PO SCH (09:28)
[2021-07-07] MEDS: ALLOPURINOL 100 MG TABLET PO SCH (09:28)
[2021-07-07] MEDS: MAG HYDROX/AL HYDROX/SIMETH 30 ML LIQUID UDC PO PRN (09:42)
[2021-07-07] MEDS: ACETAMINOPHEN ES 500 MG TABLET PO PRN (14:12)
[2021-07-07 16:05] VITALS: BP 158/72
--- NOTE | 2021-07-07 18:00 | NUR ---
Patient is alert/oriented, no distress identified. Denies discomfort. She on continuous oxygen, no respiratory distress identified. Patient reported feeling bloated, PRN meds given as ordered, effective. PRN pain medication given as ordered prior to therapy. Frequent visual check done. Kept call light within reach. Assisted with ADLs. All needs attended. Kept environment safe. All due meds given as ordered. Will endorse to the next shift for continuity of care.
[2021-07-07 20:37] VITALS: BP 104/52
[2021-07-07] MEDS: ENOXAPARIN SODIUM 30 MG/0.3 ML DISP.SYRIN SQ SCH (21:00)
[2021-07-08] MEDS: ACETAMINOPHEN ES 500 MG TABLET PO PRN ×3 (01:18→21:11)
[2021-07-08] MEDS: IPRATROPIUM BROMIDE 0.5 MG/2.5 ML NEBU NEB SCH ×6 (04:00→23:50)
[2021-07-08] MEDS: ALBUTEROL SULFATE 2.5 MG/ 0.5 ML NEBU NEB SCH ×6 (04:00→23:50)
[2021-07-08 04:37] VITALS: BP 115/51
[2021-07-08] MEDS: CYCLOBENZAPRINE HCL 10 MG TABLET PO SCH ×3 (05:44→21:12)
[2021-07-08] MEDS: LEVOTHYROXINE SODIUM 25 MCG TABLET PO SCH (06:00)
[2021-07-08 08:00] VITALS: BP 119/62
[2021-07-08] MEDS: FUROSEMIDE 20 MG TABLET PO SCH (08:43)
[2021-07-08] MEDS: DOCUSATE SODIUM 100 MG CAPSULE PO SCH ×2 (08:43→16:16)
[2021-07-08] MEDS: CLOPIDOGREL 75 MG TABLET PO SCH (08:43)
[2021-07-08] MEDS: ALLOPURINOL 100 MG TABLET PO SCH (08:43)
[2021-07-08] MEDS: FERROUS GLUCONATE 324 MG TABLET PO SCH (08:43)
[2021-07-08] MEDS: METOPROLOL TARTRATE 50 MG TABLET PO SCH ×2 (08:44→20:53)
--- NOTE | 2021-07-08 08:52 | NUR ---
PATIENT IS IN BED AWAKE ALERT AND ORIENTED REQUESTED FOR PAIN MEDICATIONS MEDICATED ORDERED REMAIN ON O2 AT 2L/M BY NASAL CANULLA WITH NO S/S OF SHORTNESS OF BREATH AT THIS TIME HHN IN PROGRESS WILL CONTINUE WITH PT/OT THERAPIES ORDERED CALL LIGHTS AND PERSONAL BELONGINGS ARE WITHIN EASY REACH MADE COMFORTABLE WILL CONTINUE TO OBSERVE.
[2021-07-08] MEDS: Z GUARD REMEDY PASTE 57 GM TUBE TOP PRN ×2 (09:00→21:24)
[2021-07-08] MEDS: ENSURE ENLIVE (VAN) 240 ML LIQUID PO SCH ×2 (09:26→16:16)
[2021-07-08] MEDS: ALPRAZOLAM 0.25 MG TABLET PO PRN ×2 (11:26→21:11)
--- NOTE | 2021-07-08 11:26 | NUR ---
PATIENT C/O FEELS ANXIOUS MEDICATED WITH XANAX ORDERED MADE COMFORTABLE
--- NOTE | 2021-07-08 15:00 | NUR ---
PATIENT IS RESTING SLEPT AT LONG INTERVALS COMFORTABLE AT THIS TIME O2 IS AT 1L/M WITH NO SOB AT THIS TIME.
[2021-07-08 16:00] VITALS: BP 111/51
--- NOTE | 2021-07-08 18:40 | NUR ---
PATIENT SEEN AND EXAMINED BY DR APONTE DISCHARGE DOOR OPERATOR WITH NEW ORDERS AND NOTED
--- NOTE | 2021-07-08 19:33 | NUR ---
ORDER FOR METOPROLOL HOLDING PARAMETERS RECEIVED FROM DR TRAORE AND NOTED.
[2021-07-08 19:54] VITALS: BP 111/52
[2021-07-08] MEDS: ENOXAPARIN SODIUM 30 MG/0.3 ML DISP.SYRIN SQ SCH (20:54)
--- NOTE | 2021-07-08 21:26 | NUR ---
IN BED AWAKE ALERT AND ORIENTED ASSISTED WITH PM CARE INCONTINENT CARE STATED WANTS HER XANAX AND PAIN MEDICATION MEDICATED WITH TYLENOL ORDERED REPOSITIONED AND MADE COMFORTABLE O2 IN PROGRESS AT 1L/M BY NASAL CANULA WITH NO SOB HOB UP CALL LIGHTS AND PERSONAL BELONGINGS ARE WITHIN EASY REACH WILL CONTINUE TO OBSERVE AND PROVIDE COMFORT
[2021-07-09 04:35] VITALS: BP 121/54
[2021-07-09] MEDS: ALBUTEROL SULFATE 2.5 MG/ 0.5 ML NEBU NEB SCH ×5 (04:37→19:37)
[2021-07-09] MEDS: IPRATROPIUM BROMIDE 0.5 MG/2.5 ML NEBU NEB SCH ×5 (04:37→19:37)
[2021-07-09] MEDS: CYCLOBENZAPRINE HCL 10 MG TABLET PO SCH ×3 (05:03→21:20)
[2021-07-09] MEDS: levoFLOXacin 750 MG TABLET PO SCH (05:03)
[2021-07-09] MEDS: ACETAMINOPHEN ES 500 MG TABLET PO PRN ×2 (05:03→21:08)
[2021-07-09] MEDS: LEVOTHYROXINE SODIUM 25 MCG TABLET PO SCH (06:10)
--- NOTE | 2021-07-09 06:16 | NUR ---
complained of headache,tylenol Es 500mg given.in no respiratory distress. no fuether complaint made.slept most of the nite.
[2021-07-09 08:00] VITALS: BP 157/49
--- NOTE | 2021-07-09 08:00 | NUR ---
PATIENTS O2 SAT WAS CHECKED ON ROOM AIR WITH THE SATURATION AT 94 PERCENT O2 TURNED OFF FOR A WHILE WILL INFORM THE DOCTOR.
[2021-07-09] MEDS: ALLOPURINOL 100 MG TABLET PO SCH (08:59)
[2021-07-09] MEDS: FERROUS GLUCONATE 324 MG TABLET PO SCH (08:59)
[2021-07-09] MEDS: DOCUSATE SODIUM 100 MG CAPSULE PO SCH ×2 (08:59→16:49)
[2021-07-09] MEDS: CLOPIDOGREL 75 MG TABLET PO SCH (08:59)
[2021-07-09] MEDS: FUROSEMIDE 20 MG TABLET PO SCH (08:59)
[2021-07-09] MEDS: ENSURE ENLIVE (VAN) 240 ML LIQUID PO SCH ×2 (09:00→16:50)
[2021-07-09] MEDS: METOPROLOL TARTRATE 50 MG TABLET PO SCH ×2 (09:00→20:30)
[2021-07-09] MEDS: Z GUARD REMEDY PASTE 57 GM TUBE TOP SCH ×2 (09:09→20:31)
--- NOTE | 2021-07-09 10:46 | NUR ---
UP OUT OF BED WITH THE PHYSICAL THERAPIST AMBULATING WITH THE FRONT WHEEL WALKER WITH MOD ASSIST O2 WAS REAPPLIED AT 1L/M BECAUSE ON ROOM AIR HER SAT WAS 89 PERCENT WITH NO SHORTNESS OF BREATH AT THIS TIME.
[2021-07-09] MEDS: ALPRAZOLAM 0.25 MG TABLET PO PRN ×2 (13:56→20:29)
[2021-07-09] MEDS ORDERED: TRAMADOL HCL 50 MG TABLET PO PRN (16:00)
[2021-07-09 16:33] VITALS: BP 121/61
--- NOTE | 2021-07-09 17:37 | NUR ---
DR NAVARRETE REHAB DOCTOR HERE TO SEE PATIENT AND NOTIFIED HIM THAT PATIENT IS REQUESTING FOR MORE PAIN MEDICATIONS WITH ORDER FOR ULTRAM FIRST DOSE GIVEN AT THIS TIME WILL OBSERVE EFFECTIVENESS.
[2021-07-09 20:00] VITALS: BP 107/51
--- NOTE | 2021-07-09 20:29 | NUR ---
MEDICATED WITH XANAX PER PATIENTS REQUEST FOR ANXIETY STATED ULTRAM HELPED BUT MADE HER FEEL DIFFERENT UNSURE OF HOW SHE FEELS ABOUT ULTRAM.
[2021-07-09] MEDS: ENOXAPARIN SODIUM 30 MG/0.3 ML DISP.SYRIN SQ SCH (20:31)
--- NOTE | 2021-07-09 21:16 | NUR ---
MEDICATED WITH TYLENOL PER HER REQUEST REPOSITIONED REMAIN ON O2 AT IL/M BY NASAL CANULA WITH NO SOB AT THIS TIME MAX ASSIST FOR ALL ADL CALL LIGHTS AND HER PERSONAL BELONGINGS ARE WITHIN EASY REACH AT THIS TIME WILL CONTINUE TO OBSERVE.
[2021-07-10] MEDS: IPRATROPIUM BROMIDE 0.5 MG/2.5 ML NEBU NEB SCH ×7 (00:20→22:30)
[2021-07-10] MEDS: ALBUTEROL SULFATE 2.5 MG/ 0.5 ML NEBU NEB SCH ×7 (00:20→22:30)
[2021-07-10 04:00] VITALS: BP 103/44
[2021-07-10] MEDS: levoFLOXacin 750 MG TABLET PO SCH (05:45)
[2021-07-10] MEDS: CYCLOBENZAPRINE HCL 10 MG TABLET PO SCH ×3 (05:45→21:09)
[2021-07-10] MEDS: LEVOTHYROXINE SODIUM 25 MCG TABLET PO SCH (05:45)
--- NOTE | 2021-07-10 06:51 | NUR ---
SLEPT MOST OF THE NITE.
--- NOTE | 2021-07-10 07:37 | NUR ---
PATIENT IS IN BED AWAKE ALERT AND ORIENTED GETS FORGETFUL AT TIMES ON O2 AT IL/M BY NASAL CANULLA WITH NO S/S OF SHORTNESS OF BREATH AT THIS TIME HAND HELD NEBULIZER IS IN PROGRESS AT THIS TIME ORDERED AND TOLERATING WELL DENIES PAIN OR DISCOMFORTS CALL LIGHTS AND PERSONAL BELONGINGS ARE WITHIN EASY REACH WILL CONTINUE TO OBSERVE.
[2021-07-10 07:46] VITALS: BP 122/45
[2021-07-10] MEDS: ALLOPURINOL 100 MG TABLET PO SCH (09:15)
[2021-07-10] MEDS: FUROSEMIDE 20 MG TABLET PO SCH (09:15)
[2021-07-10] MEDS: DOCUSATE SODIUM 100 MG CAPSULE PO SCH ×2 (09:15→17:03)
[2021-07-10] MEDS: CLOPIDOGREL 75 MG TABLET PO SCH (09:15)
[2021-07-10] MEDS: METOPROLOL TARTRATE 50 MG TABLET PO SCH ×2 (09:16→20:27)
[2021-07-10] MEDS: Z GUARD REMEDY PASTE 57 GM TUBE TOP SCH ×2 (09:18→20:29)
[2021-07-10] MEDS: FERROUS GLUCONATE 324 MG TABLET PO SCH (09:23)
[2021-07-10] MEDS: ACETAMINOPHEN ES 500 MG TABLET PO PRN ×2 (09:23→17:03)
--- NOTE | 2021-07-10 09:23 | NUR ---
PATIENT IS REQUESTING FOR PAIN MEDICATION OFFERED ULTRAM ORDERED AND SHE DECLINED PREFERED TYLENOL STATED THAT ULTRAM MAKES HER FEEL FUNNY TYLENOL GIVEN ORDERED AT THIS TIME WILL CONTINUE TO OBSERVE.
[2021-07-10] MEDS: ENSURE ENLIVE (VAN) 240 ML LIQUID PO SCH ×2 (09:29→17:44)
[2021-07-10 15:12] VITALS: BP 97/54
--- NOTE | 2021-07-10 17:00 | NUR ---
D/C PLANNING PER THE MICROBIOLOGY PROFESSOR FOR TOMORROW BUT NO ORDERS AT THIS TIME PATIENT AWARE AND STATED THAT SHE WILL PREFER TO GO HOME INSTEAD OF PRISON.
[2021-07-10 20:00] VITALS: BP 110/51
[2021-07-10] MEDS: ENOXAPARIN SODIUM 30 MG/0.3 ML DISP.SYRIN SQ SCH (20:23)
[2021-07-11] MEDS: IPRATROPIUM BROMIDE 0.5 MG/2.5 ML NEBU NEB SCH ×4 (02:39→15:26)
[2021-07-11] MEDS: ALBUTEROL SULFATE 2.5 MG/ 0.5 ML NEBU NEB SCH ×4 (02:39→15:26)
[2021-07-11] MEDS: ACETAMINOPHEN ES 500 MG TABLET PO PRN (02:55)
[2021-07-11 04:00] VITALS: BP 92/43
[2021-07-11] MEDS: CYCLOBENZAPRINE HCL 10 MG TABLET PO SCH ×2 (05:25→14:22)
[2021-07-11] MEDS: levoFLOXacin 750 MG TABLET PO SCH (05:26)
--- NOTE | 2021-07-11 05:29 | NUR ---
Levaquin 750 mg PO not given this shift. 5/5 doses completed yesterday AM. It was given ahead of schedule by night nurse on 07/10/21. Please refer to EMAR.
[2021-07-11] MEDS: LEVOTHYROXINE SODIUM 25 MCG TABLET PO SCH (06:00)
--- NOTE | 2021-07-11 06:18 | NUR ---
Received patient on bed with no respiratory distress upon initial rounds. She is alert/oriented x4, able to make needs known. Tylenol PRN given, tolerated well and noted effective. Slept intermittently throughout the night. All needs attended. Call light placed within reach. Frequent visual checks done. Will endorse to next shift for continuity of care.
[2021-07-11 07:05] LABS: CARBON DIOXIDE 34 mmol/L (21-32); CHLORIDE 96 mmol/L (98-107); CREATININE 1.4 mg/dL (0.6-1.3); GLUCOSE 91 mg/dL (74-106); UREA NITROGEN, BLOOD 23 mg/dL (7-18)
[2021-07-11 07:42] VITALS: BP 136/76
[2021-07-11] MEDS: ENSURE ENLIVE (VAN) 240 ML LIQUID PO SCH (09:18)
[2021-07-11] MEDS: CLOPIDOGREL 75 MG TABLET PO SCH (09:18)
[2021-07-11] MEDS: DOCUSATE SODIUM 100 MG CAPSULE PO SCH (09:18)
[2021-07-11] MEDS: ALLOPURINOL 100 MG TABLET PO SCH (09:18)
[2021-07-11] MEDS: FERROUS GLUCONATE 324 MG TABLET PO SCH (09:18)
[2021-07-11] MEDS: FUROSEMIDE 20 MG TABLET PO SCH (09:18)
[2021-07-11] MEDS: Z GUARD REMEDY PASTE 57 GM TUBE TOP SCH (09:19)
[2021-07-11] MEDS: METOPROLOL TARTRATE 50 MG TABLET PO SCH (09:28)
[2021-07-11 15:26] VITALS: BP 107/52
--- NOTE | 2021-07-11 16:05 | NUR ---
Patient awaiting [facility] for transportation home. R upper arm 40cm PICC line removed by MIKHAIL Celis. Tip intact. No signs of infection or bleeding noted. Will continue to monitor.
== END 2021-07-11 17:30 | disposition home health service (06) | DRG 189 ==
PROVIDERS: ADMIT Physical Medicine & Rehabilitation; ATTEND Physical Medicine & Rehabilitation
DX: J96.21 Acute and chronic respiratory failure with hypoxia (principal); N17.0 Acute kidney failure with tubular necrosis; E43 Unspecified severe protein-calorie malnutrition; I50.33 Acute on chronic diastolic (congestive) heart failure; G92 Toxic encephalopathy; J15.6 Pneumonia due to other Gram-negative bacteria; J44.1 Chronic obstructive pulmonary disease with (acute) exacerbation; D68.59 Other primary thrombophilia; I13.0 Hypertensive heart and chronic kidney disease with heart failure and stage 1 through stage 4 chronic kidney disease, or unspecified chronic kidney disease; I42.2 Other hypertrophic cardiomyopathy; I48.20 Chronic atrial fibrillation, unspecified; J44.0 Chronic obstructive pulmonary disease with (acute) lower respiratory infection; D63.8 Anemia in other chronic diseases classified elsewhere; E03.9 Hypothyroidism, unspecified; I11.0 Hypertensive heart disease with heart failure; I25.10 Atherosclerotic heart disease of native coronary artery without angina pectoris; I50.9 Heart failure, unspecified; M19.90 Unspecified osteoarthritis, unspecified site; F32.9 Major depressive disorder, single episode, unspecified; Z95.0 Presence of cardiac pacemaker; E78.5 Hyperlipidemia, unspecified; F41.9 Anxiety disorder, unspecified; I25.2 Old myocardial infarction; Z86.73 Personal history of transient ischemic attack (TIA), and cerebral infarction without residual deficits; N18.9 Chronic kidney disease, unspecified; M79.7 Fibromyalgia; K59.00 Constipation, unspecified; I34.0 Nonrheumatic mitral (valve) insufficiency; M17.0 Bilateral primary osteoarthritis of knee; Z87.440 Personal history of urinary (tract) infections; Z90.710 Acquired absence of both cervix and uterus; Z91.81 History of falling; Z88.5 Allergy status to narcotic agent; Z88.8 Allergy status to other drugs, medicaments and biological substances; Z91.040 Latex allergy status; Z91.011 Allergy to milk products
CPT/HCPCS: 36415; 71045; 83550; 83735; 84100; 84443; 85025; 87086; 93005; 93307; 94640; 94664; 97161; A6209; A9150; C1758; J0360; J0692; J1650; J3590; J7050; J7060; J8499